=== PATIENT | male | born 1970 | race Caucasian/White ===

== ENCOUNTER → 2016-05-20 | Outpatient (CLI) | payer OTHER ==
[~2016-05-20] MED LIST: ABL/5 PO; ALPR1TAB3 PO; ALPR2TAB6 PO; BSP15 PO; BUSP30TA2 PO; CHOL100010 PO; CITA40TA12 PO; CLX20 PO; GABA800T PO; HYDR-5688 PO; HYDR25TA4 PO; IBUP600T44 PO; KFL500 PO; LOSA100T65 PO; LPR100 PO; LSX20 PO; NRN/600 PO; NRN800 PO; NRT75 PO; POTA1CAP2 PO; POTA20TA13 PO; PRLSR20 PO; PRVHFAIN INH; VLT500 PO
[2016-05-20 12:48] LABS: ALB/GLOB RATIO 0.7 (0.9-2); ALKALINE PHOSPHATASE 72 U/L (45-117); ALT/SGPT 31 U/L (12-78); AST/SGOT 17 U/L (15-37); BLOOD UREA NITROGEN 12 mg/dl (7-18); BUN/CREATININE RATIO 11.1 (10-20); CALCIUM 8.8 mg/dl (8.5-10.1); CARBON DIOXIDE 37 mmol/L (21-32); CHLORIDE 101 mmol/L (98-107); GLUCOSE 97 mg/dl (70-99); POTASSIUM 4.2 mmol/L (3.5-5.1); SODIUM 141 mmol/L (136-145)
[2016-05-20 13:42] LABS: ESTIMATED AVERAGE GLUCOSE 126 mg/dl; HA1C FLAG Normal (Normal)
== END | disposition home or self-care (01) ==
LOC: C.LABPVFM 07:48
PROVIDERS: ATTEND Nurse Practitioner
DX: I10 Essential (primary) hypertension (principal); R73.01 Impaired fasting glucose

== ENCOUNTER 2016-07-24 03:12 | Inpatient (IN) | payer OTHER ==
[~2016-07-24] VITALS: Ht 188 cm; Wt 177.1 kg
[2016-07-24] VITALS (27 sets, daily range): BP systolic 88–121; BP diastolic 43–78; PULSE 75–101; TEMP 37–38.1; O2SAT 93–100; Ht 188 cm; Wt 177.1 kg
[~2016-07-24 03:12] MED LIST changes: -ABL/5 PO; -ALPR2TAB6 PO; -BUSP30TA2 PO; -CITA40TA12 PO; -HYDR25TA4 PO; -KFL500 PO; -NRN/600 PO; -POTA1CAP2 PO; -POTA20TA13 PO; -PRVHFAIN INH; +SUCCINYLCHOLINE CHLORIDE 20 MG/ML 10 ML VIAL IV ONE; -VLT500 PO
[2016-07-24] MEDS ORDERED: SODIUM CHLORIDE 0.9% 1000ML 2,000 ML IV STA (03:29)
--- NOTE | 2016-07-24 03:40 | EMERGENCY ROOM VISIT NOTE ---
History Report prepared by Mere: Armida Monroy Under the Supervision of: Dr. Jamarcus Delatorre M.D. First contact with patient: 03:23 Chief Complaint: SKIN PROBLEM Stated Complaint: SKIN PROBLEM/RASH History of Present Illness The patient is a 46 year old male who presents to the Emergency Room with complaints of a rash starting last week. Initially started on left forearm as small pustule that broke open and is now with surrounding erythema and scabbing. Admits chronic leg swelling and erythema of legs. Denies diabetes nor previous issues with infections nor other immunocompromising reason. Admits feeling fatigued with dizziness, especially with standing over last few days. Over last day or so increasing shortness of breath with ambulation and diffuse generalized weakness, even just lifting his arm. Admits mild headache though no neck stiffness, photophobia, phonophobia, nor neuro deficits. The patient states that he is dizzy and that it gets worse when he stands up. He reports that he has been short of breath and has had weakness in his arms and legs. Has taken no medications for this. Nothing makes rash better, it has been worsening with time. Denies recent drug/alcohol use. Source of History: patient Onset: last week Position: other (global) Quality: other (rash) Associated Symptoms: + headache, No urinary symptoms Review of Systems See HPI for pertinent positives & negatives. A total of 10 systems reviewed and were otherwise negative. Past Medical & Surgical Medical Problems: (1) Depressive Disorder Nec (2) Diab Fay Wo Compl, Type Ii Or Unspec Type, Not Uncntrld (3) Hypertension Nos Family History Cancer Heart disease Social History Smoking Status: Never Smoker Marital Status: Current/Historical Medications Scheduled Alprazolam (Alprazolam), 2 MG PO TID Aripiprazole (Abilify), 5 MG PO HS Buspirone Hcl (Buspirone Hcl), 30 MG PO TID Citalopram Hydrobromide (Celexa), 40 MG PO QAM Furosemide (Furosemide), 20 MG PO DAILY Gabapentin (Neurontin), 600 MG PO QID Hydrochlorothiazide (Hctz), 25 MG PO DAILY Losartan Potassium (Cozaar), 100 MG PO DAILY Metoprolol Tartrate (Metoprolol Tartrate), 100 MG PO BID Nortriptyline HCl (Nortriptyline HCl), 75 MG PO HS Omeprazole (Prilosec), 20 MG PO DAILY Potassium Chloride (Potassium Chloride Er), 10 MEQ PO DAILY Allergies Coded Allergies: Morphine (Verified Adverse Reaction, Unknown, gi upset, 07/24/16) Physical Exam Vital Signs Date Time Temp Pulse Resp B/P (MAP) Pulse Ox O2 Delivery O2 Flow Rate FiO2 07/24/16 04:42 84 34 100 Nasal Cannula 2.0 07/24/16 04:12 85 99 Nasal Cannula 2.0 07/24/16 03:57 85 07/24/16 03:48 124/74 07/24/16 03:46 85 26 124/74 100 Nasal Cannula 2.0 07/24/16 03:17 38.5 93 18 104/67 91 Room Air Physical Exam GENERAL: Patient is severely ill and somnolent appearing. HEENT: No acute trauma, normocephalic atraumatic, mucous membranes moist, no nasal congestion, no scleral icterus. NECK: Large obese neck. No stridor, no adenopathy, no meningismus, trachea is midline. LUNGS: Mild dyspneic with shallow respirations though maintaining airway. [place]. Distant lung sounds without obvious wheezing/rhonchi/rales HEART: Tachycardic and regular rhythm. No murmurs, rubs, gallops appreciated though distant heart sounds due to body habitus ABDOMEN: Soft, nontender, bowel sounds positive, no masses appreciated, no peritonitis. BACK: No midline tenderness, no CVA tenderness EXTREMITIES: Lymphedema of bilateral lower legs. There is diffuse lower leg cellulitis, grossly infected toes bilaterally as well. NEUROLOGIC: Somnolent, no acute motor or sensory deficits, no focal weakness, cranial nerves grossly intact. SKIN: Diffuse erythematous bullae, nodules and pustules over most of body. Large cellulitis region of left forearm with blistering/crusting. Bilateral cellulitis of legs extending from toes to knees. Medical Decision & Procedures ER Provider Diagnostic Interpretation: X ray results are stated below per my interpretation and the radiologist's interpretation. Chest X Ray: Diffuse haziness all lung mckinney. Poor penetration due to body habitus. Enlarged heart. Laboratory Results 07/24/16 03:35 Red Blood Count 5.41, Mean Corpuscular Volume 90.2, Mean Corpuscular Hemoglobin 27.5, Mean Corpuscular Hemoglobin Concent 30.5, Mean Platelet Volume 10.8, Neutrophils (%) (Auto) 76.9, Lymphocytes (%) (Auto) 12.8, Monocytes (%) (Auto) 9.0, Eosinophils (%) (Auto) 0.3, Basophils (%) (Auto) 0.3, Neutrophils # (Auto) 11.76, Lymphocytes # (Auto) 1.96, Monocytes # (Auto) 1.38, Eosinophils # (Auto) 0.05, Basophils # (Auto) 0.04 07/24/16 03:35 Test 07/24/16 03:35 07/24/16 03:46 07/24/16 04:30 White Blood Count 15.29 K/uL (4.8-10.8) Red Blood Count 5.41 M/uL (4.7-6.1) Hemoglobin 14.9 g/dL (14.0-18.0) Hematocrit 48.8 % (42-52) Mean Corpuscular Volume 90.2 fL (80-100) Mean Corpuscular Hemoglobin 27.5 pg (25-34) Mean Corpuscular Hemoglobin Concent 30.5 g/dl (32-36) Platelet Count 235 K/uL (130-400) Mean Platelet Volume 10.8 fL (7.4-10.4) Neutrophils (%) (Auto) 76.9 % Lymphocytes (%) (Auto) 12.8 % Monocytes (%) (Auto) 9.0 % Eosinophils (%) (Auto) 0.3 % Basophils (%) (Auto) 0.3 % Neutrophils # (Auto) 11.76 K/uL (1.4-6.5) Lymphocytes # (Auto) 1.96 K/uL (1.2-3.4) Monocytes # (Auto) 1.38 K/uL (0.11-0.59) Eosinophils # (Auto) 0.05 K/uL (0-0.5) Basophils # (Auto) 0.04 K/uL (0-0.2) RDW Standard Deviation 52.4 fL (36.4-46.3) RDW Coefficient of Variation 15.9 % (11.5-14.5) Immature Granulocyte % (Auto) 0.7 % Immature Granulocyte # (Auto) 0.10 K/uL (0.00-0.02) Erythrocyte Sedimentation Rate 85 mm/hr (0-14) Prothrombin Time 12.7 SECONDS (9.0-12.0) Prothromb Time International Ratio 1.2 (0.9-1.1) Anion Gap 7.0 mmol/L (3-11) Est Creatinine Clear Calc Drug Dose 82.0 ml/min Estimated GFR () 47.9 Estimated GFR (Non- 41.4 BUN/Creatinine Ratio 13.8 (10-20) Calcium Level 8.4 mg/dl (8.5-10.1) Magnesium Level 3.0 mg/dl (1.8-2.4) Total Bilirubin 0.8 mg/dl (0.2-1) Direct Bilirubin 0.2 mg/dl (0-0.2) Aspartate Amino Transf (AST/SGOT) 12 U/L (15-37) Alanine Aminotransferase (ALT/SGPT) 17 U/L (12-78) Alkaline Phosphatase 79 U/L (45-117) Total Creatine Kinase 86 U/L (39-308) Creatine Kinase MB < 0.5 ng/ml (0.5-3.6) Creatine Kinase MB Ratio (0-3.0) Troponin I < 0.015 ng/ml (0-0.045) C-Reactive Protein 16.60 mg/dl (0-0.29) Total Protein 8.5 gm/dl (6.4-8.2) Albumin 3.1 gm/dl (3.4-5.0) Procalcitonin 0.21 ng/ml (0-0.5) Bedside Lactic Acid Venous 1.59 mmol/L (0.90-1.70) Venous Blood pH 7.33 (7.36-7.41) Venous Blood Partial Pressure CO2 61 mmHg (38.0-50.0) Venous Blood Partial Pressure O2 41 mmHg Venous Blood HCO3 32 mmol/L Venous Blood Oxygen Saturation 74.5 % Venous Blood Base Excess 3.9 mmol/L Laboratory results as reviewed by me. Medications Administered Medications (Trade) Dose Ordered Sig/Mariel Route Start Time Stop Time Status Last Admin Dose Admin Sodium Chloride 2,000 ml @ 999 mls/hr Q2H1M STAT IV 07/24/16 03:29 07/24/16 05:29 DC 07/24/16 03:29 999 MLS/HR Piperacillin Sod/ Tazobactam Sod (Zosyn Iv) 4.5 gm NOW STAT IV 07/24/16 03:41 07/24/16 03:42 DC 07/24/16 04:36 4.5 GM Vancomycin HCl 2800 mg/Sodium Chloride 556 ml @ 200 mls/hr ONE STAT IV 07/24/16 04:10 07/24/16 06:56 DC 07/24/16 04:47 200 MLS/HR ECG Indication: SOB/dyspnea Rate (beats per minute): 85 Rhythm: normal sinus Findings: no acute ischemic change, no ectopy ED Course 0328: The patient was evaluated in room A10. A complete history and physical exam was performed. 0329: Ordered Sodium Chloride 2,000 ml @ 999 mls/hr IV. 0330: I ordered 2 large bore IV's. I told the nursing staff to start IV fluids and antibiotics. 0340: The patient became hypoxic and is now on 4L of nasal cannula. 0341: Ordered Zosyn Iv 4.5 gm IV. 0405: I discussed with the pharmacist, and will treat the patient with Vancomycin. 0410: Ordered Vancomycin HCl 2,800 mg/Sodium Chloride 556 ml @ 200 mls/hr IV. 0443: The patient is mildly stable. 0522: The patient is off of Oxygen. His level is in the low 90's. He is breathing comfortably. He awakens and answers questions though still severely ill. Given his multiple issues, we will send to ICU emergently for further treatment. Medical Decision Differential: Viral, Pharyngitis, Cellulitis, Pneumonia, Influenza, Meningitis, Sepsis, Bacteremia, UTI/Pyelonephritis, Endocrine, Toxicologic, amongst other pathologies entertained. Medication Reconciliation: I attest that I have personally reviewed the patient 's current medication list. The patient was initially hypotensive. He will be monitored by the hospitalist. 46 yr old severely ill male arrives for evaluation of diffuse rash over body. Exam consistent with bilateral leg cellulitis, left forearm cellulitis and diffuse septic bulea over much of body. Suspect he has sepsis secondary to primary leg cellulitis. Consistent with impending severe sepsis thus the two IVs, fluid resus, broad spectrum abx ordered on arrival. No murmur noted though heart sounds distant given large body habitus, obviously endocarditis in this case of high concern. CXR with difficult interpretation due to body habitus though could suspect underlying infection. Initial hypoxic and placed on O2 though with rest and fact that he is hypercapnic we removed O2 and sats staying in mid-low 90s. WBC elevation, diffuse cellulitis, mild AMS, CRP/ESR elevations and his exam he is clearly septic. Renal insufficiency though unclear if this is chronic for him or not. Had mild worsening mental status while in ED though still awakens and answers questions/follows commands. I concur with fact he is severely ill, despite his labs not being as severe as his exam. Many repeat exams and patient maintaining airway while in ED. Hospitalist down to evaluate patient and we both agree with ICU monitoring as his high risk of rapid decompensation. Consults Time Called: 034 Consulting Physician: Dr. Mercedes- Internal Medicine Returned Call: [phone] Discussed the patient's case. The patient will be evaluated for further treatment and disposition. Impression Primary Impression: Sepsis Additional Impression: Cellulitis Critical Care I have personally spent greater than 45 minutes of critical care time in the direct management of this patient. This was a life/limb threatening event. This includes time spent evaluating patient, direct bedside care, chart review, placing orders, interpretation of diagnostic studies, discussion with consultants, patient, and family members, as well as other required patient management activities. This 45 minutes is in excess of all separately billable procedures. Scribe Attestation The scribe's documentation has been prepared under my direction and personally reviewed by me in its entirety. I confirm that the note above accurately reflects all work, treatment, procedures, and medical decision making performed by me. Departure Information Dispostion Being Evaluated By Hospitalist Referrals Nelly Leonard C.R.N.P (PCP) Patient Instructions My [facility] Problem Qualifiers
[2016-07-24] MEDS ORDERED: PIPERACILLIN/TAZOBACTAM 4.5 GM/100ML D5W IV STA (03:41)
[2016-07-24 03:53] LABS: BASO % 0.3 %; BASO ABS # 0.04 K/uL (0-0.2); COMPLETE YES; EOS % 0.3 %; HEMATOCRIT 48.8 % (42-52); IG% 0.7 %; LYMPH % 12.8 %; LYMPH ABS # 1.96 K/uL (1.2-3.4); MEAN CELL VOLUME 90.2 fL (80-100); MEAN CORPUSCULAR HEMOGLOBIN 27.5 pg (25-34); MEAN CORPUSCULAR HGB CONC 30.5 g/dl (32-36); MEAN PLATELET VOLUME 10.8 fL (7.4-10.4); NEUT % 76.9 %; PLATELET COUNT 235 K/uL (130-400); RED BLOOD COUNT 5.41 M/uL (4.7-6.1); WHITE BLOOD COUNT 15.29 K/uL (4.8-10.8)
[2016-07-24 04:03] LABS: INR 1.2 (0.9-1.1); PROTHROMBIN TIME (PATIENT) 12.7 SECONDS (9.0-12.0)
[2016-07-24] MEDS ORDERED: VANCOMYCIN INJ 2,800 MG in SODIUM CHLORIDE 0.9% 500ML 500 ML IV STA (04:10)
[2016-07-24 04:12] LABS: ALT/SGPT 17 U/L (12-78); AST/SGOT 12 U/L (15-37); BLOOD UREA NITROGEN 26 mg/dl (7-18); BUN/CREATININE RATIO 13.8 (10-20); CALCIUM 8.4 mg/dl (8.5-10.1); CARBON DIOXIDE 31 mmol/L (21-32); CHLORIDE 97 mmol/L (98-107); GLUCOSE 102 mg/dl (70-99); SODIUM 135 mmol/L (136-145)
[2016-07-24 04:15] LABS: ALKALINE PHOSPHATASE 79 U/L (45-117)
[2016-07-24] MEDS ORDERED: BUSP30TA2 PO (04:34)
[2016-07-24] MEDS ORDERED: ABL/5 PO (04:35)
[2016-07-24] MEDS ORDERED: CITA40TA12 PO (04:35)
[2016-07-24] MEDS ORDERED: NRN/600 PO (04:36)
[2016-07-24] MEDS ORDERED: POTA1CAP2 PO (04:36)
[2016-07-24] MEDS ORDERED: HYDR25TA4 PO (04:36)
[2016-07-24] MEDS ORDERED: POTA20TA13 PO (04:36)
[2016-07-24] MEDS ORDERED: ALPR2TAB6 PO (04:37)
[2016-07-24 04:38] LABS: VEN BLD GAS O2 SATURATION 74.5 %; VEN BLOOD GAS BASE EXCESS 3.9 mmol/L; VENOUS BLOOD GAS PCO2 61 mmHg (38.0-50.0); VENOUS BLOOD GAS PO2 41 mmHg
[2016-07-24] MEDS ORDERED: ACETAMINOPHEN 325 MG TAB PO PRN (04:45)
[2016-07-24] MEDS ORDERED: NITROGLYCERIN 0.4 MG SL PER TAB CHARGE SL PRN (04:45)
[2016-07-24] MEDS ORDERED: VANCOMYCIN INJ 1,000 MG in SODIUM CHLORIDE 0.9% 250ML 250 ML IV STA (04:46)
[2016-07-24] MEDS ORDERED: LEVALBUTEROL 1.25MG/0.5ML NEB INH PRN (05:00)
[2016-07-24] MEDS ORDERED: PIPERACILL/TAZOBAC CONSULT ACTIVE PRN (05:00)
[2016-07-24] MEDS ORDERED: IPRATROPIUM BROMIDE NEB SOLN 0.02% 2.5 ML VIAL INH PRN (05:00)
[2016-07-24] MEDS ORDERED: VANCOMYCIN CONSULT ACTIVE PRN (05:00)
--- NOTE | 2016-07-24 06:00 | History and Physical ---
History & Physical Date & Time of Service: Jul 24, 2016 at 05:43 Chief Complaint: Skin Problem/Rash Primary Care Physician: Nelly Leonard C.R.N.P History of Present Illness Source: patient, spouse The patient is a 46-year-old male who presents to emergency room with 2 weeks of worsening bilateral lower extremity rash, shortness of breath and fatigue. He reports to the emergency department today because he was not able to stand up without being dizzy and was not able to walk. He has not had any recent travels or sick exposures. He reports that if he waited long enough he thought his symptoms might improve, which is why he did not come in earlier. Past Medical/Surgical History Medical Problems: (1) Depressive Disorder Nec Status: Chronic (2) Diab Fay Wo Compl, Type Ii Or Unspec Type, Not Uncntrld Status: Chronic (3) Hypertension Nos Status: Chronic Family History Cancer Heart disease Social History Smoking Status: Never Smoker Smokeless Tobacco Use: No Alcohol Use: none Drug Use: none Marital Status: Immunizations History of Influenza Vaccine: No History of Tetanus Vaccine?: Unknown History of Pneumococcal: No History of Hepatitis B Vaccine: Unknown Multi-Drug Resistant Organisms History of MDRO: No Allergies Coded Allergies: Morphine (Verified Adverse Reaction, Unknown, gi upset, 07/24/16) Home Medications Scheduled Alprazolam (Alprazolam), 2 MG PO TID Aripiprazole (Abilify), 5 MG PO HS Buspirone Hcl (Buspirone Hcl), 30 MG PO TID Citalopram Hydrobromide (Celexa), 40 MG PO QAM Furosemide (Furosemide), 20 MG PO DAILY Gabapentin (Neurontin), 600 MG PO QID Hydrochlorothiazide (Hctz), 25 MG PO DAILY Losartan Potassium (Cozaar), 100 MG PO DAILY Metoprolol Tartrate (Metoprolol Tartrate), 100 MG PO BID Nortriptyline HCl (Nortriptyline HCl), 75 MG PO HS Omeprazole (Prilosec), 20 MG PO DAILY Potassium Chloride (Potassium Chloride Er), 10 MEQ PO DAILY Review of Systems The patient is very lethargic, but is slowly able to answer questions. He denies chest pain, palpitations, cough, sore throat, fevers, chills, sweats, nausea, vomiting, abdominal pain, pelvic pain, blood in urine or stool, dysuria , urinary frequency or urgency, memory loss, abnormal bruising or bleeding, focal weakness, night sweats. The review of systems is otherwise negative other than for that already noted above, and at least 10 systems have been reviewed. Physical Exam Vital Signs Date Time Temp Pulse Resp B/P (MAP) Pulse Ox O2 Delivery O2 Flow Rate FiO2 07/24/16 05:25 38.4 07/24/16 05:15 83 30 135/60 100 Nasal Cannula 2.0 07/24/16 05:01 144/72 07/24/16 04:42 84 34 100 Nasal Cannula 2.0 07/24/16 04:12 85 99 Nasal Cannula 2.0 07/24/16 03:57 85 07/24/16 03:48 124/74 07/24/16 03:46 85 26 124/74 100 Nasal Cannula 2.0 07/24/16 03:17 38.5 93 18 104/67 91 Room Air The patient is lethargic, slow to respond, normocephalic and atraumatic, lying in bed and in moderate acute distress. HEENT--PERRL, EOMI, mucous membranes and oropharynx dry. Neck--supple, no JVD or bruits, thyroid normal, trachea midline, no adenopathy. Heart--normal S1 and S2, SM, no rubs or gallops. Lungs--diminished throughout, moderate respiratory distress, moderate accessory muscle use. Abdomen--normal bowel sounds and soft, morbidly obese Extremities/ Dermatologic--bilateral lower extremities with moderately severe erythema with scattered darkened areas, 3+ pitting edema bilaterally. Similar scattered areas on upper body as well. Neurologic--cranial nerves II through XII grossly intact. Moves all extremities equally well. Psychiatric--lethargic Diagnostics Laboratory Results Results Past 24 Hours Test 07/24/16 03:35 07/24/16 03:46 07/24/16 04:30 07/24/16 04:50 Range/Units White Blood Count 15.29 4.8-10.8 K/uL Red Blood Count 5.41 4.7-6.1 M/uL Hemoglobin 14.9 14.0-18.0 g/dL Hematocrit 48.8 42-52 % Mean Corpuscular Volume 90.2 80-100 fL Mean Corpuscular Hemoglobin 27.5 25-34 pg Mean Corpuscular Hemoglobin Concent 30.5 32-36 g/dl Platelet Count 235 130-400 K/uL Mean Platelet Volume 10.8 7.4-10.4 fL Neutrophils (%) (Auto) 76.9 % Lymphocytes (%) (Auto) 12.8 % Monocytes (%) (Auto) 9.0 % Eosinophils (%) (Auto) 0.3 % Basophils (%) (Auto) 0.3 % Neutrophils # (Auto) 11.76 1.4-6.5 K/uL Lymphocytes # (Auto) 1.96 1.2-3.4 K/uL Monocytes # (Auto) 1.38 0.11-0.59 K/uL Eosinophils # (Auto) 0.05 0-0.5 K/uL Basophils # (Auto) 0.04 0-0.2 K/uL RDW Standard Deviation 52.4 36.4-46.3 fL RDW Coefficient of Variation 15.9 11.5-14.5 % Immature Granulocyte % (Auto) 0.7 % Immature Granulocyte # (Auto) 0.10 0.00-0.02 K/uL Erythrocyte Sedimentation Rate 85 0-14 mm/hr Prothrombin Time 12.7 9.0-12.0 SECONDS Prothromb Time International Ratio 1.2 0.9-1.1 Sodium Level 135 136-145 mmol/L Potassium Level 4.0 3.5-5.1 mmol/L Chloride Level 97 98-107 mmol/L Carbon Dioxide Level 31 21-32 mmol/L Anion Gap 7.0 3-11 mmol/L Blood Urea Nitrogen 26 7-18 mg/dl Creatinine 1.90 0.60-1.40 mg/dl Est Creatinine Clear Calc Drug Dose 82.0 ml/min Estimated GFR () 47.9 Estimated GFR (Non- 41.4 BUN/Creatinine Ratio 13.8 10-20 Random Glucose 102 70-99 mg/dl Calcium Level 8.4 8.5-10.1 mg/dl Magnesium Level 3.0 1.8-2.4 mg/dl Total Bilirubin 0.8 0.2-1 mg/dl Direct Bilirubin 0.2 0-0.2 mg/dl Aspartate Amino Transf (AST/SGOT) 12 15-37 U/L Alanine Aminotransferase (ALT/SGPT) 17 12-78 U/L Alkaline Phosphatase 79 45-117 U/L Total Creatine Kinase 86 39-308 U/L Creatine Kinase MB < 0.5 0.5-3.6 ng/ml Creatine Kinase MB Ratio 0-3.0 Troponin I < 0.015 0-0.045 ng/ml C-Reactive Protein 16.60 0-0.29 mg/dl Total Protein 8.5 6.4-8.2 gm/dl Albumin 3.1 3.4-5.0 gm/dl Procalcitonin 0.21 0-0.5 ng/ml Bedside Lactic Acid Venous 1.59 0.90-1.70 mmol/L Venous Blood pH 7.33 7.36-7.41 Venous Blood Partial Pressure CO2 61 38.0-50.0 mmHg Venous Blood Partial Pressure O2 41 mmHg Venous Blood HCO3 32 mmol/L Venous Blood Oxygen Saturation 74.5 % Venous Blood Base Excess 3.9 mmol/L Microbiology Results 07/24/16 Blood Culture, Received Pending 07/24/16 Blood Culture, Received Pending Diagnostic Radiology Chest x-ray with bilateral fluffy infiltrates. Impression Assessment and Plan Sepsis with lung involvement and severe bilateral lower extremity cellulitis-- patient was admitted to the ICU on vancomycin IV, Zosyn IV and Levaquin IV. Follow blood cultures. We'll order CT of the head to assess for possible embolic process, and order an echocardiogram to assess for possible SBE. The picture of lung and skin involvement could be that of an embolic process. Place on normal saline at 100 mils per hour. Hypertension--hold HCTZ, furosemide and metoprolol tartrate 100 mg by mouth twice a day as patient has not taken his medications at all today and his systolic blood pressure is in the 110s, with a concern of possible sepsis. Will have available Lopressor 5 mg IV every 4 hours when necessary systolic blood pressure rhythm 140 or heart rate greater than 110. Depression--until patient is taking nothing by mouth we'll hold the alprazolam, Abilify, buspirone, Celexa, gabapentin, and nortriptyline. GERD--hold omeprazole 20 mg by mouth daily, and place on ranitidine 50 mg IV every 8 hours. Morbid obesity--suspect element of obesity hypoventilation syndrome, and will likely need CPAP at bedtime. Level of Care Critical Care Advanced Directives Existing Advance Directive: No Existing Living Will: No Existing Power of [place]: No Resuscitation Status FULL RESUSCITATION VTE Prophylaxis VTE Risk Assessment Done? Y/N: Yes Risk Level: High Given or contraindicated: Unfractionated heparin SQ
[2016-07-24] MEDS ORDERED: ACETAMINOPHEN IV 100 ML IV PRN (06:15)
[2016-07-24] MEDS ORDERED: METOPROLOL TARTRATE 1 MG/ML VIAL IV PRN (06:15)
[2016-07-24] MEDS: LEVOFLOXACIN / D5W 500 MG in PREMIXED IN D5W 100 ML IV SCH (06:21)
[2016-07-24] MEDS: SODIUM CHLORIDE 0.9% 1000ML 1,000 ML IV SCH ×3 (06:25→20:12)
--- NOTE | 2016-07-24 07:04 | DIAGNOSTIC IMAGING REPORT ---
HEAD CT NONCONTRAST CT DOSE: 614.27 mGy.cm HISTORY: altered mental state TECHNIQUE: Multiaxial CT images of the head were performed without the use of intravenous contrast. Automated exposure control was utilized for this study. Comparison: None. Findings: The paranasal sinuses and mastoid air cells are clear. The calvarium and skull base are intact. The ventricles and sulci are within normal limits. There is no mass, hematoma, midline shift, or acute infarct. Impression: No acute intracranial abnormality. Electronically signed by: Higinio Hodges M.D. 07/24/2016 7:03 AM Dictated Date/Time: 07/24/2016 7:01 AM
[2016-07-24] MEDS: LEVALBUTEROL 1.25MG/0.5ML NEB INH SCH ×2 (07:23→15:08)
[2016-07-24] MEDS: IPRATROPIUM BROMIDE NEB SOLN 0.02% 2.5 ML VIAL INH SCH ×2 (07:23→15:08)
[2016-07-24] MEDS: RANITIDINE IV 50 MG in DEXTROSE 5% 100ML 100 ML IV SCH ×2 (07:30→15:11)
--- NOTE | 2016-07-24 08:19 | Progress Note ---
Subjective Date of Service: Jul 24, 2016. Subjective very unclear story with this pt, is a diabetic and has open skin wounds on legs , plus recent trimming of toe nails and has background look of chronic venous stasis from his morbid obesity, has also many pets at home has a diffuse rash or focal erythematous inflammatory papules, across torso and extremities sparing palms and soles, one area of coaslecence at left elbow and more diffuse erythema to legs with open wounds to consider cellulitis in that location he has tachypnea without focal pulmonary infiltrates and presented with hypotension concerning clinically for sepsis Problem List Medical Problems: (1) Cellulitis Status: Acute (2) Sepsis Status: Acute Review of Systems Constitutional: + fever, + chills, + weakness, + fatigue Respiratory: + shortness of breath, + dyspnea on exertion, + dyspnea at rest, No cough, No sputum Cardiac: No chest pain, No edema Abdomen: No pain, No nausea, No vomiting, No diarrhea Musculoskeletal: + joint pain, + muscle pain Male : No dysuria, No urinary frequency Neurologic: No memory loss, No paralysis, No weakness Skin: + rash, + new/changing skin lesions Objective Vital Signs Date Time Temp Pulse Resp B/P (MAP) Pulse Ox O2 Delivery O2 Flow Rate FiO2 07/24/16 07:24 86 20 96 Nasal Cannula 6.0 07/24/16 06:00 85 20 121/72 (88) 94 Nasal Cannula 6.0 07/24/16 05:53 37.1 89 20 93/60 94 Nasal Cannula 6.0 07/24/16 05:25 38.4 07/24/16 05:15 83 30 135/60 100 Nasal Cannula 2.0 07/24/16 05:01 144/72 07/24/16 04:42 84 34 100 Nasal Cannula 2.0 07/24/16 04:12 85 99 Nasal Cannula 2.0 07/24/16 03:57 85 07/24/16 03:48 124/74 07/24/16 03:46 85 26 124/74 100 Nasal Cannula 2.0 07/24/16 03:17 38.5 93 18 104/67 91 Room Air Physical Exam General Appearance: + moderate distress, + obese Eyes: PERRL, EOMI ENT: hearing grossly normal, pharynx normal Neck: supple, no JVD Respiratory/Chest: chest non-tender, + decreased breath sounds, + rhonchi Cardiovascular: regular rate, rhythm, no murmur Abdomen: normal bowel sounds, non tender, soft Extremities: no pedal edema, no calf tenderness Neurologic/Psychiatric: alert, oriented x 3 Skin: + pertinent finding (see hpi for description) Laboratory Results Last 24 Hours Test 07/24/16 03:35 07/24/16 03:46 07/24/16 04:30 07/24/16 06:28 White Blood Count 15.29 K/uL Red Blood Count 5.41 M/uL Hemoglobin 14.9 g/dL Hematocrit 48.8 % Mean Corpuscular Volume 90.2 fL Mean Corpuscular Hemoglobin 27.5 pg Mean Corpuscular Hemoglobin Concent 30.5 g/dl Platelet Count 235 K/uL Mean Platelet Volume 10.8 fL Neutrophils (%) (Auto) 76.9 % Lymphocytes (%) (Auto) 12.8 % Monocytes (%) (Auto) 9.0 % Eosinophils (%) (Auto) 0.3 % Basophils (%) (Auto) 0.3 % Neutrophils # (Auto) 11.76 K/uL Lymphocytes # (Auto) 1.96 K/uL Monocytes # (Auto) 1.38 K/uL Eosinophils # (Auto) 0.05 K/uL Basophils # (Auto) 0.04 K/uL RDW Standard Deviation 52.4 fL RDW Coefficient of Variation 15.9 % Immature Granulocyte % (Auto) 0.7 % Immature Granulocyte # (Auto) 0.10 K/uL Erythrocyte Sedimentation Rate 85 mm/hr Prothrombin Time 12.7 SECONDS Prothromb Time International Ratio 1.2 Sodium Level 135 mmol/L Potassium Level 4.0 mmol/L Chloride Level 97 mmol/L Carbon Dioxide Level 31 mmol/L Anion Gap 7.0 mmol/L Blood Urea Nitrogen 26 mg/dl Creatinine 1.90 mg/dl Est Creatinine Clear Calc Drug Dose 82.0 ml/min Estimated GFR () 47.9 Estimated GFR (Non- 41.4 BUN/Creatinine Ratio 13.8 Random Glucose 102 mg/dl Calcium Level 8.4 mg/dl Magnesium Level 3.0 mg/dl Total Bilirubin 0.8 mg/dl Direct Bilirubin 0.2 mg/dl Aspartate Amino Transf (AST/SGOT) 12 U/L Alanine Aminotransferase (ALT/SGPT) 17 U/L Alkaline Phosphatase 79 U/L Total Creatine Kinase 86 U/L Creatine Kinase MB < 0.5 ng/ml Creatine Kinase MB Ratio Troponin I < 0.015 ng/ml C-Reactive Protein 16.60 mg/dl Total Protein 8.5 gm/dl Albumin 3.1 gm/dl Procalcitonin 0.21 ng/ml Bedside Lactic Acid Venous 1.59 mmol/L Venous Blood pH 7.33 Venous Blood Partial Pressure CO2 61 mmHg Venous Blood Partial Pressure O2 41 mmHg Venous Blood HCO3 32 mmol/L Venous Blood Oxygen Saturation 74.5 % Venous Blood Base Excess 3.9 mmol/L Bedside Glucose 93 mg/dl Test 07/24/16 07:26 07/24/16 07:32 Assessment and Plan 46 M with sepsis, systemic inflamatory dermatitis and diabetic leg infection, Sepsis/diabetic leg infection, vancomycin IV, Zosyn IV and Levaquin IV. pending blood cultures. concern that diffuse process could be viral, will consider varicella/hanta virus,will discuss with icu and send serologies Hypertension--hold HCTZ, furosemide and metoprolol available Lopressor 5 mg IV every 4 hours if bp allows to prevent reflex tachycardia Depression-- hold the alprazolam, Abilify, buspirone, Celexa, gabapentin, and nortriptyline. GERD-- ranitidine 50 mg IV every 8 hours. Morbid obesity--suspect element of obesity hypoventilation syndrome, and will likely need CPAP at bedtime
[2016-07-24] MEDS: ENOXAPARIN 40 MG/0.4 ML SYR SQ SCH (08:47)
[2016-07-24 08:57] LABS: ISTAT ALLEN TEST Pass; ISTAT ARTERIAL BLOOD GAS HCO3 30 meq/L (19-24); ISTAT ARTERIAL BLOOD GAS PCO2 57 mmHg (35-46); ISTAT ARTERIAL BLOOD GAS PO2 66 mmHg (80-95); ISTAT ARTERIAL BLOOD GAS pH 7.33 (7.35-7.45); ISTAT CARBON DIOXIDE 31 mEq/l (24-31); ISTAT DELIVERY SYSTEM Cannula; ISTAT SITE L Radial
--- NOTE | 2016-07-24 08:58 | DIAGNOSTIC IMAGING REPORT ---
CHEST ONE VIEW PORTABLE HISTORY: fever COMPARISON: Chest 11/07/2010. FINDINGS: Low lung volumes. The heart remains mildly enlarged. No pleural effusions. No pneumothorax. No focal lung consolidations to suggest pneumonia. Mild central pulmonary vascular congestion without overt edema. IMPRESSION: Mild cardiomegaly. Mild central pulmonary vascular congestion without overt edema. Electronically signed by: Higinio Hodges M.D. 07/24/2016 8:57 AM Dictated Date/Time: 07/24/2016 8:56 AM
[2016-07-24] MEDS ORDERED: LEVALBUTEROL/IPRATROPIUM NEB INH SCH (09:00)
--- NOTE | 2016-07-24 09:21 | Progress Note ---
Progress Note Date of Service Jul 24, 2016. Progress Note ID Consult Dictated #[id number] A/P: 1. Sepsis -Continue broad spectrum abx for now, follow cultures -No open skin wounds currently, if drainage, will need cultures -Discussed with ICU -will follow, thank you
[2016-07-24 09:34] LABS: PHOSPHORUS 2.7 mg/dl (2.5-4.9); THYROID STIMULATING HORMONE 1.27 uIu/ml (0.300-4.500)
[2016-07-24 09:37] LABS: URINE APPEARANCE TURBID (CLEAR); URINE BILIRUBIN NEG (NEG); URINE COLOR YELLOW; URINE NITRITE NEG (NEG); URINE SPECIFIC GRAVITY 1.024 (1.000-1.030); UROBILINOGEN NEG (NEG)
[2016-07-24] MEDS: PIPERACILL/TAZOBAC IV 4.5 GM in DEXTROSE 5% 100ML 100 ML IV SCH ×2 (09:48→17:39)
[2016-07-24 09:59] LABS: MANUAL MICROSCOPIC REQUIRED? NO; REVIEW REQ? YES
[2016-07-24] MEDS ORDERED: CONSULT PHARMACY STA (10:10)
[2016-07-24] MEDS ORDERED: ACYCLOVIR CONSULT ACTIVE PRN (10:45)
[2016-07-24] MEDS: ACYCLOVIR SOD INJ 800 MG in DEXTROSE 5% 250ML 250 ML IV SCH ×2 (11:17→17:40)
[2016-07-24] MEDS ORDERED: ALBUMIN HUMAN 25% 12.5 GM/50 ML VIAL IV ONE (11:30)
[2016-07-24] MEDS ORDERED: SODIUM CHLORIDE 0.9% 500ML 500 ML IV ONE ×2 (12:00→13:00)
--- NOTE | 2016-07-24 12:19 | INFECT. DISEASE CONSULTATION ---
DATE OF CONSULTATION: 07/24/2016 REQUESTING PHYSICIAN: Dr. Mercedes. HISTORY OF PRESENT ILLNESS: This is a 46-year-old gentleman who was admitted to the Emergency Room with 2 weeks worth of lower extremity swelling, rash, shortness of breath and cough productive of purulent sputum. His girlfriend is present during my examination and provides most of the history as the patient himself is confused. He is in mild distress and is having shaking chills during my examination but denies any fevers currently. He was febrile at 38.5 on admission and does admit to having subjective fevers and chills over the past few weeks at home. He denies any travel or insect bites. He has multiple skin lesions covering both his upper and lower extremities and has significant edema and pain in his lower extremities which he states is chronic. He denies any cough or shortness of breath to me; however, upon speaking to the ICU team, he is having productive cough and a sample has been sent for culture. He denies any chest pain. He denies any nausea, vomiting, diarrhea or abdominal pain. His appetite is poor. He denies any travel. He denies any sick contacts. They do have goats, dogs and cats at the house. All remaining review of systems are unremarkable. PAST MEDICAL HISTORY: He has a history of depression, type 2 diabetes and hypertension. FAMILY HISTORY: Noncontributory. SOCIAL HISTORY: Negative for tobacco use, alcohol use or drug use. ALLERGIES: HE HAS ALLERGIES TO MORPHINE. CURRENT MEDICATIONS: Include Zosyn, Atrovent, Xopenex, Lovenox, acetaminophen, ranitidine, Lopressor, Levaquin, Tylenol. He also received a one-time dose of vancomycin overnight. PHYSICAL EXAMINATION: VITAL SIGNS: T-max is 38.5, current temperature is 37.2, pulse 85, respiratory rate is in the 20s, blood pressure is 104/71, oxygen saturation is 94-96% on 6 liters nasal cannula. GENERAL: He is awake, alert and oriented. He is somewhat confused and lethargic. He does appear uncomfortable. He is not diaphoretic. HEENT: Mucous membranes are dry. Extraocular muscles are intact. HEART: Regular. I do not auscultate a murmur. LUNGS: Decreased bilaterally. ABDOMEN: Soft and nondistended. EXTREMITIES: There is significant lower extremity edema bilaterally with warmth and erythema. He states this is tender to palpation. He has multiple pimple-like lesions scattered all over his upper extremities. There is an area of significant erythema and induration over the left elbow, but he does admit to picking at this lesion. These are not vesicular in nature. There is no crusting over the lesions. There is no weeping or purulent drainage from any of the lesions noted today. LABORATORY STUDIES: CBC reveals a white blood cell count of 15.2, hemoglobin 14.9, platelets are 235. Sed rate is elevated at 85. Chemistry panel reveals a sodium of 135, potassium 4.0, chloride 97, bicarb 31, BUN 26, creatinine 1.9, glucose is 102. LFTs are within normal limits. Procalcitonin is 0.2. Thyroid studies are pending. No urinalysis was obtained. Blood culture and sputum culture are pending. Chest x-ray shows bilateral infiltrates; however, has not been read by radiology. At this time, a CAT scan of the head was unremarkable. ASSESSMENT AND PLAN: 1. Sepsis. 2. Leukocytosis. 3. Fever. At this time, he will remain on broad spectrum antibiotics, pending the results of blood and sputum cultures. His skin lesions do not have a typical appearance for disseminated zoster or varicella; however, I am concerned that there could be secondary bloodstream infection related to these areas as he has been picking at them at home and he will remain on broad spectrum antibiotics, pending the results of blood cultures. We will follow along with you. Thank you for this consultation.
[2016-07-24] MEDS ORDERED: PERFLUTREN LIPID MICROSPHERE (DEFINITY) IV ONE (13:22)
--- NOTE | 2016-07-24 14:11 | CRITICAL CARE CONSULTATION ---
DATE OF CONSULTATION: 07/24/2016 CHIEF COMPLAINT: Rash and dizziness. HISTORY OF PRESENT ILLNESS: Mr. Louie is a 46-year-old morbidly obese male, with a history of hypertension and depression who presented to the Emergency Department last night secondary to worsening rash and dizziness. He also reported shortness of breath and generalized weakness. He is not a very good historian, although his girlfriend helps fill in the blanks. He tells me 2 or 3 weeks ago, he started to have a cough and bring up some sputum, basically feeling pretty lousy. The sputum was yellow and thick and he felt mildly short of breath. He denies fevers or chills. His appetite has been poor. About a week ago, he started to have a rash on his left arm which was "pinpoint, not raised and he calls them "spots." The spots got larger, became raised and confluent on his left arm. He then noticed them on his chest and now he has them scattered over his body, primarily the arms and trunk. The rash is not pruritic and he denies any tick bites or insect bites, but does live in the [place] with several dogs and cats as well as goats. He also has a gecko. He has been "dizzy" for several weeks where he is "wobbly when he walks and hanging on to furniture because sometimes he feels like he is going to pass out." He denies any falls or focal weakness. His girlfriend has been trying to get him to seek medical attention for at least a week and he thought that his symptoms would resolve on their own. He reports lower extremity edema, but not worse than usual. He also says he has been sitting around the house for the better part of 3 weeks and is not eating very well. He denies sore throat, nausea, vomiting, abdominal pain, melena, hematochezia or headache. He may have had some visual changes, but he has a hard time describing it. He denies dysuria, frequency or urgency. In the Emergency Department, the patient was given 2 liters of normal saline, Zosyn and vancomycin. He also had a CT scan of his head which did not show any acute process. Chest x-ray was read as mild central pulmonary vascular congestion without overt edema. He was then transferred to the intensive care unit. Presently, he is a bit lethargic and his history is not always consistent. He and his girlfriend also report that they had a problem with his medications 2 or 3 weeks ago because one of the dogs knocked his pill container off the table or flipped it over and he thought maybe his symptoms were due to a mixup in medicines after that. PAST MEDICAL HISTORY: Depression, hypertension, morbid obesity and lymphedema. PAST SURGICAL HISTORY: Hammertoe surgery, tonsillectomy and dental extractions. ALLERGIES: MORPHINE WHICH CAUSES NAUSEA. OUTPATIENT MEDICATIONS: Xanax 2 mg t.i.d., Abilify 5 mg at bedtime, buspirone 30 mg t.i.d., Celexa 40 mg daily, Lasix 20 mg daily, gabapentin 600 mg q.i.d., hydrochlorothiazide 25 mg daily, losartan 100 mg daily, metoprolol 100 mg b.i.d., nortriptyline 75 mg at bedtime, omeprazole 20 mg daily and potassium chloride 10 mEq daily. SOCIAL HISTORY: He is and has a girlfriend named Charisma. He quit smoking in 2009 and does not drink any alcohol. He is not employed. FAMILY HISTORY: Mother with heart disease and pacemaker. Father with lung cancer. Both are . REVIEW OF SYSTEMS: He reports cutting his toe when he attempted to cut his toenails several weeks ago. Increased erythema of the lower extremities. He denies diarrhea or hemoptysis. He denies myalgias or arthralgias. Additional review of systems is negative or noncontributory or as per the history of present illness and 12-point system. PHYSICAL EXAMINATION: VITAL SIGNS: Maximum temperature 38.5, heart rate 80s-90s, respiratory rate 20-28, blood pressure 93-121/60s-70s and oxygen saturation 94% on six liters nasal cannula. HEENT: Pupils are equally round and reactive to light. There is no scleral icterus. There is no nystagmus. Oral mucosa is dry. Posterior pharynx is clear. NECK: Large. No adenopathy, no bruits. LUNGS: Very diminished breath sounds throughout. No rales, rhonchi or wheezes, but I cannot hear much of anything. HEART: Very distant, regular rate and rhythm. ABDOMEN: Firm, nontender, it is impossible to feel any organomegaly, hypoactive bowel sounds. EXTREMITIES: There is erythema and warmth on the bilateral lower extremities from below the knee distally. There is at least 2+ edema. There is an area of old dried blood and some nail bed changes over the left great toe. Hands and feet are cool. No splinter hemorrhages. SKIN: Shows erythematous papules with some patchy areas; they are approximately 1 cm in diameter and there is a confluence of them over the left arm inferior to the elbow. There is crusting there with a scab. NEUROLOGIC: He is able to answer questions, but speaks slowly. He is oriented to person and place, but not month. There is no nystagmus. Tongue is midline. No facial droop. No pronator drift. Strength is 4+/5 in the upper and lower extremities. Sensation is grossly intact. LABORATORIES: White blood cell count 15.29, hemoglobin 14.9, hematocrit 48.8 and platelets 235. There is a left shift, pH 7.33, pCO2 57, pO2 66, HCO3 of 30. PT 12.7, INR 1.2. Sodium 135, potassium 4, chloride 97, CO2 31, BUN 26, creatinine 1.9, blood sugar 102, calcium 8.4, magnesium 3. LFTs are within normal limits. Troponin is less than 0.015. C-reactive protein 16.6, total protein 8.5, albumin 3.1. Procalcitonin 0.21. Lactic acid 1.59. Phosphorus is pending. Hemoglobin A1c is pending. TSH is pending. Urinalysis is pending. Blood cultures are pending. Urine culture and sputum culture pending. EKG is in progress. IMPRESSION: 1. Sepsis, undetermined definitive etiology. He has potential sources in the lungs as well as his skin. 2. Bilateral lower extremity cellulitis. 3. Probable pneumonia. 4. Acute hypoxemic respiratory failure. 5. Probable obesity hypoventilation syndrome. 6. Acute kidney injury. 7. Rash. - ? viral etiology. 8. Depression. 9. Morbid obesity. 10. History of hypertension. 11. Metabolic encephalopathy. PLAN: NEUROLOGIC: Avoid sedatives. Acetaminophen for pain. PULMONARY: Continue broad-spectrum antibiotics. I have placed him on BiPAP 18/7 for [address] expansion. Consider CT scan of the chest. Percussion therapy has been ordered, encourage sputum expectoration. Bronchodilators. He may require intubation and I discussed that with him, as well as his girlfriend and his girlfriend's mother. He is not especially hypoxemic, but he is taking very shallow tidal volumes off bipap. CARDIOVASCULAR: Check EKG and echocardiogram and attempt to rule out endocarditis. Follow troponins. PICC line. Hold Lopressor. Hold Lasix and hydrochlorothiazide. RENAL: Continue hydration and follow electrolytes. INFECTIOUS DISEASE: Continue Levaquin, Zosyn and vancomycin. Infectious disease service has been consulted. Consider acyclovir. GASTROINTESTINAL: Maintain n.p.o. with the exception of a few ice chips and medications. Add ranitidine for GI prophylaxis. HEMATOLOGIC: Bilateral lower extremity Dopplers and subcutaneous Lovenox for now. Critical care time; 60 minutes. MTDD
--- NOTE | 2016-07-24 15:21 | DIAGNOSTIC IMAGING REPORT ---
BILATERAL LOWER EXTREMITY VENOUS DOPPLER HISTORY: Lower extremity edema COMPARISON STUDY: None. FINDINGS: There is normal compressibility, flow, and augmentation within the bilateral lower extremity deep venous systems. IMPRESSION: No DVT within the right or left lower extremity. Electronically signed by: Higinio Hodges M.D. 07/24/2016 3:20 PM Dictated Date/Time: 07/24/2016 3:19 PM
[2016-07-24] MEDS ORDERED: RAPID SEQUENCE INDUCTION BAG ONE (15:26)
[2016-07-24] MEDS ORDERED: PROPOFOL IV EMULSION 10 MG/ML 100 ML VIAL IV ONE (15:27)
[2016-07-24] MEDS ORDERED: PHENYLEPHRINE HCL INJ 10 MG/ML VIAL ONE (15:28)
[2016-07-24 15:50] LABS: IPAP 18; ISTAT ALLEN TEST Pass; ISTAT ARTERIAL BLOOD GAS HCO3 33 meq/L (19-24); ISTAT ARTERIAL BLOOD GAS PCO2 72 mmHg (35-46); ISTAT ARTERIAL BLOOD GAS PO2 250 mmHg (80-95); ISTAT ARTERIAL BLOOD GAS pH 7.27 (7.35-7.45); ISTAT CARBON DIOXIDE 35 mEq/l (24-31); ISTAT DELIVERY SYSTEM BIPAP; ISTAT FIO2 50 %; ISTAT RATE 12; ISTAT SITE L Radial
--- NOTE | 2016-07-24 15:51 | ECHOCARDIOGRAM REPORT ---
*NOTICE TO RECEIVING DEMOCRAT AGENCY This information is strictly Confidential and protected under [place] law. [place] law prohibits you from making any further disclosure of this information unless further disclosure is expressly permitted by the written consent of the person to whom it pertains or is authorized by law. A general authorization for the release of medical or other information is not sufficient for this purpose. Hospital accepts no responsibility if the information is made available to any other person, INCLUDING THE PATIENT. Interpretation Summary * Name: AZEB BOYCE Study Date: 07/24/2016 12:59 PM BP: 93/60 mmHg * Patient Location: .MSICU\S\E104\S\1 HR: 89 * : 1970 (M/d/yyyy) Gender: Male Height: 72 in * Age: 46 yrs Ethnicity: CA Weight: 401 lb * Ordering Physician: Reji Mercedes * Performed By: Zhanna Christianson * * Reason For Study: SEPSIS, ASSESS FOR SBE * BSA: 2.9 m2 * -- Conclusions -- * The study was done sitting up. * Only the definity pictures have any diagnostic value. * The left ventricle is normal in size. * Ejection Fraction = >70 %. * The left ventricle is hyperdynamic. * There is normal left ventricular wall thickness. * The left ventricular wall motion is normal. * There is no aortic stenosis. * No significant mitral regurgitation * Normal E/A ratio and normal E:e' ratio * The RV is not seen but TAPSE is normal. * None of the valves are seen well. Procedure Details * The study was technically limited. * The study was technically difficult. * Limited views were obtained. * There were technical limitations due to patient's body habitus and inability to cooperate. * A contrast injection of Definity was performed to improve assessment of LV function. * Contrast was injected into an intravenous site in the left arm. * One vial of Definity ultrasound contrast was diluted in normal saline to a total volume of 10 ml. A total of '3' ml of solution was administered during imaging. * Lot # [id number] of Definity utilized for procedure. * Expiration date 07/24. * The attending nurse who injected the contrast agent was LUIS ALBERTO BENSON. Left Ventricle * The left ventricle is normal in size. * There is normal left ventricular wall thickness. * Ejection Fraction = >70 %. * The left ventricle is hyperdynamic. * The left ventricular wall motion is normal. MMode 2D Measurements and Calculations IVSd 1.5 cm IVSs 2.2 cm LVIDd 5.5 cm LVIDs 3.2 cm LVPWd 1.1 cm LVPWs 1.8 cm IVS/LVPW 1.4 FS 42.9 % EDV(Teich) 149.5 ml ESV(Teich) 39.8 ml EF(Teich) 73.4 % EDV(cubed) 169.5 ml ESV(cubed) 31.6 ml EF(cubed) 81.3 % % IVS thick 46.4 % % LVPW thick 60.1 % LV mass(C)d 309.5 grams LV mass(C)dI 108.1 grams/m\S\2 LV mass(C)s 277.3 grams LV mass(C)sI 96.8 grams/m\S\2 CO(Teich) 10.4 l/min CI(Teich) 3.6 l/min/m\S\2 SV(Teich) 109.7 ml SI(Teich) 38.3 ml/m\S\2 CO(cubed) 13.1 l/min CI(cubed) 4.6 l/min/m\S\2 SV(cubed) 137.8 ml SI(cubed) 48.1 ml/m\S\2 LVOT diam 2.5 cm LVOT area 4.9 cm\S\2 LVAd ap4 29.9 cm\S\2 LVLd ap4 8.1 cm EDV(MOD-sp4) 88.9 ml LVAs ap4 10.6 cm\S\2 LVLs ap4 5.8 cm ESV(MOD-sp4) 16.3 ml EF(MOD-sp4) 81.7 % LVAd ap2 21.5 cm\S\2 LVLd ap2 7.3 cm EDV(MOD-sp2) 51.4 ml LVAs ap2 8.7 cm\S\2 LVLs ap2 5.6 cm ESV(MOD-sp2) 10.8 ml EF(MOD-sp2) 79.0 % CO(MOD-sp4) 6.9 l/min CI(MOD-sp4) 2.4 l/min/m\S\2 SV(MOD-sp4) 72.6 ml SI(MOD-sp4) 25.4 ml/m\S\2 CO(MOD-sp2) 3.9 l/min CI(MOD-sp2) 1.3 l/min/m\S\2 SV(MOD-sp2) 40.6 ml SI(MOD-sp2) 14.2 ml/m\S\2 Doppler Measurements and Calculations MV E max manuela 103.8 cm/sec MV A max manuela 87.3 cm/sec MV E/A 1.2 MV dec time 0.24 sec Ao V2 max 146.6 cm/sec Ao max PG 8.6 mmHg Ao max PG (full) 2.9 mmHg EWA(V,A) 4.0 cm\S\2 EWA(V,D) 4.0 cm\S\2 LV V1 max PG 5.7 mmHg LV V1 max 119.8 cm/sec PA V2 max 91.2 cm/sec PA max PG 3.3 mmHg
--- NOTE | 2016-07-24 16:00 | Progress Note ---
Progress Note Date of Service Jul 24, 2016. Progress Note Consultation for intubation requested by Cap And Stud Machine Operator for mechanical ventilation. Patient has acute hypoxic and hypercarbic respiratory failure most likely due to severe sepsis complicated by Pickwickian syndrome. The patient has a stiff neck, full teeth, and is morbidly obese. He is somnolent on BiPAP, 100% FIO2. HR 92, BP 113/67, SPO2 100, RR 24 Patient was positioned with a ramp. preoxygenated. Induced with 200mg of Propofol and 200mg of succinylcholine. 2 hand mask possible with oral airway. Grade 3 view obtained by brief laryngoscopy attempt with Mil3. Good view of cords facilitated with glide scope. 8.0ETT placed to 25cm at teeth. Continuous ETCO2 and breath sounds confirmed bilaterally. Post procedure vital signs 122/64 HR 93, SPO2, RR 19. Ventilator management and sedation per motor vehicle escort driver. Thank you for the consult.
[2016-07-24] MEDS ORDERED: FENTANYL 1250MCG/250ML NSS 250 ML IV PRN (16:15)
[2016-07-24] MEDS ORDERED: FENTANYL CITRATE 1250MCG/250ML NSS ONE (16:18)
[2016-07-24] MEDS ORDERED: FENTANYL CITRATE INJ 50 MCG/1 ML 2 ML VIAL IV SCH (16:30)
--- NOTE | 2016-07-24 16:31 | DIAGNOSTIC IMAGING REPORT ---
CHEST ONE VIEW PORTABLE HISTORY: TUBE PLACEMENT COMPARISON: Chest 07/24/2016. FINDINGS: Endotracheal tube terminates 2.1 cm from the arina. The tip of the right PICC terminates in the expected location of the SVC. There are low lung volumes. The heart remains mildly enlarged. Mild central pulmonary gastric congestion without overt edema. Bibasilar densities have progressed. This may represent atelectasis or pleural effusions. Suboptimal evaluation of the chest due to the portable technique in the patient's large body habitus. IMPRESSION: 1. The endotracheal tube terminates 2.1 cm from the arina. 2. A right PICC terminates in the expected location of the distal SVC. 3. Pulmonary vascular congestion and mild cardiomegaly. 4. Progressive bibasilar densities. This could represent atelectasis or layering small pleural effusions. Electronically signed by: Higinio Hodges M.D. 07/24/2016 4:29 PM Dictated Date/Time: 07/24/2016 4:27 PM
[2016-07-24 16:42] LABS: BUN/CREATININE RATIO 11.3 (10-20); CALCIUM 7.5 mg/dl (8.5-10.1); CREATININE 1.3 mg/dl (0.60-1.40); POTASSIUM 4.3 mmol/L (3.5-5.1)
[2016-07-24] MEDS ORDERED: PANTOprazole INJ 40 MG in SYRINGE 0 ML IV ONE (17:15)
[2016-07-24 17:42] LABS: ISTAT ALLEN TEST Pass; ISTAT ARTERIAL BLOOD GAS HCO3 33 meq/L (19-24); ISTAT ARTERIAL BLOOD GAS PCO2 58 mmHg (35-46); ISTAT ARTERIAL BLOOD GAS PO2 154 mmHg (80-95); ISTAT ARTERIAL BLOOD GAS pH 7.37 (7.35-7.45); ISTAT CARBON DIOXIDE 35 mEq/l (24-31); ISTAT DELIVERY SYSTEM Ventilator; ISTAT FIO2 100 %; ISTAT PEEP 10; ISTAT RATE 20; ISTAT SITE L Radial; VE 8.9; Vt 500
--- NOTE | 2016-07-24 18:17 | Progress Note ---
Progress Note Date of Service Jul 24, 2016. Progress Note Surveying Technician: Patient became hypercapneic and poorly responsive on bipap 18/7 50% FIO2. Was intubated by anesthesia - short neck, poor neck extension, morbidly obese. Significant other, Charisma, updated by me via phone.
[2016-07-24] MEDS: PROPOFOL IV EMULSION 10 MG/ML 100 ML VIAL IV PRN ×2 (19:15→23:35)
[2016-07-24] MEDS: CHLORHEXIDINE GLUCONATE 0.12% 15 ML UDP MT SCH (19:28)
[2016-07-24] MEDS: IPRATROPIUM BROMIDE HFA INHALER INH SCH ×2 (19:46→23:32)
[2016-07-24] MEDS: LEValbuterol HFA 15GM INHALER INH SCH ×2 (19:46→23:32)
[2016-07-24] MEDS: VANCOMYCIN INJ 2,000 MG in SODIUM CHLORIDE 0.9% 500ML 500 ML IV SCH (20:31)
--- NOTE | 2016-07-24 22:22 | Pharmacy Progress Note ---
Pharmacy Abx Initial Consult Date of Service Jul 24, 2016. Pharmacy Dosing Scope Pharmacy is consulted to manage IV Vancomycin/Zosyn/Acyclovir dosing therapy, order appropriate labs and adjust drug dose/frequency. Subjective The patient is a 46 year old male admitted on Jul 24, 2016 at 04:49. Objective Height (Feet): 6 Height (Inches): 2.00 Weight (Kilograms): 172.200 Vital Signs (Past 12Hrs) Vital Signs Past 12 Hours Date Time Temp Pulse Resp B/P (MAP) Pulse Ox O2 Delivery O2 Flow Rate FiO2 07/24/16 20:32 89 20 107/52 (70) 100 07/24/16 20:02 92 20 109/56 (73) 99 07/24/16 20:00 100 07/24/16 20:00 100 Mechanical Ventilator 80 07/24/16 20:00 37.3 92 20 99 07/24/16 19:56 100 07/24/16 19:32 94 20 120/61 (80) 100 07/24/16 19:02 95 20 108/60 (76) 100 07/24/16 19:00 96 20 100 07/24/16 18:00 37.2 95 20 108/60 (76) 100 Mechanical Ventilator 100 07/24/16 17:50 100 07/24/16 16:05 100 07/24/16 16:00 37.2 95 18 114/78 (90) 93 Mechanical Ventilator 100 07/24/16 16:00 97 Mechanical Ventilator 100 07/24/16 16:00 100 07/24/16 15:10 92 30 100 BiPAP/CPAP 50 07/24/16 15:08 92 100 50 07/24/16 14:00 37.2 91 30 115/55 (75) 100 BiPAP 50 07/24/16 12:00 38.1 101 48 109/55 (73) 95 Nasal Cannula 8.0 07/24/16 12:00 95 Oxymask 8.0 07/24/16 11:35 37.2 96 28 104/43 (63) 96 Oxymask 8.0 07/24/16 10:00 37.2 93 28 88/50 (63) 97 BiPAP 50 Lab Results (24Hrs) Laboratory Tests (24 Hours) Test 07/24/16 03:35 07/24/16 20:28 C-Reactive Protein 16.60 mg/dl (0-0.29) H Erythrocyte Sedimentation Rate 85 mm/hr (0-14) H White Blood Count 15.29 K/uL (4.8-10.8) H Red Blood Count 5.41 M/uL (4.7-6.1) Hemoglobin 14.9 g/dL (14.0-18.0) Hematocrit 48.8 % (42-52) Mean Corpuscular Volume 90.2 fL (80-100) Mean Corpuscular Hemoglobin 27.5 pg (25-34) Mean Corpuscular Hemoglobin Concent 30.5 g/dl (32-36) L Platelet Count 235 K/uL (130-400) Mean Platelet Volume 10.8 fL (7.4-10.4) H Neutrophils (%) (Auto) 76.9 % Lymphocytes (%) (Auto) 12.8 % Monocytes (%) (Auto) 9.0 % Eosinophils (%) (Auto) 0.3 % Basophils (%) (Auto) 0.3 % Neutrophils # (Auto) 11.76 K/uL (1.4-6.5) H Lymphocytes # (Auto) 1.96 K/uL (1.2-3.4) Monocytes # (Auto) 1.38 K/uL (0.11-0.59) H Eosinophils # (Auto) 0.05 K/uL (0-0.5) Basophils # (Auto) 0.04 K/uL (0-0.2) Procalcitonin 0.21 ng/ml (0-0.5) Lactic Acid Level 0.8 mmol/L (0.4-2.0) Total Creatine Kinase 55 U/L (39-308) Micro Results Date/Time Source Procedure Growth Status 07/24/16 04:00 Blood Blood Culture Pending Received 07/24/16 03:35 Blood Blood Culture Pending Received 07/24/16 06:00 Nasal MRSA DNA Surveillance Screen - Final Specimen Negative for MRSA by DNA Probe Complete 07/24/16 07:45 Sputum Expectorated Sputum Gram Stain Pending Received 07/24/16 07:45 Sputum Expectorated Sputum Sputum Culture Pending Received 07/24/16 09:00 Urine,Catheterized Urine Culture Pending Received 07/24/16 06:00 Drainage-Deep Leg Lower Left Gram Stain - Final Resulted 07/24/16 06:00 Drainage-Deep Leg Lower Left Wound Culture Pending Resulted 07/24/16 06:00 Drainage-Deep Elbow Gram Stain - Final Resulted 07/24/16 06:00 Drainage-Deep Elbow Wound Culture Pending Resulted Assessment & Plan Assessment 46 year old male presenting with possible sepsis with lung involvement & severe bilateral LE cellulitis, showing significant improvement in renal function throughout the day. Plan Vancomycin IV * Loading dose: Vancomycin 2800mg IV x 1 dose (15.4mg/kg) * Maintenance dose: Vancomycin 2gm IV q12h (11.6mg/kg) * Goal trough level: 15-20mcg/mL * Trough level ordered for: 07/26/16 0900 dose * Random level this afternoon indicates that patient can begin scheduled maintenance dosing * A less than traditional dose & extended dosing interval have been selected due to likelihood of drug accumulation in obese patient (BMI 48.7kg/m2) Piperacillin/tazobactam * 4.5gm bolus administered over 30 minutes, then 4.5gm IV extended infusion every 8 hours for CrCl greater than 20 mL * Aggressive dosing selected due to critically ill status/BMI 35 or more. Acyclovir * Dosing based on IBW of 82kg * Acyclovir 800mg IV u4q--kf dosage adjustment needed for CrCl above 50ml/min Pharmacy will continue to follow and will adjust dose/frequency as necessary. Thank you.
[2016-07-25] VITALS (28 sets, daily range): BP systolic 91–147; BP diastolic 48–75; PULSE 69–88; TEMP 36.6–37; O2SAT 95–100
[2016-07-25] MEDS: PIPERACILL/TAZOBAC IV 4.5 GM in DEXTROSE 5% 100ML 100 ML IV SCH ×3 (01:30→17:47)
[2016-07-25] MEDS: ACYCLOVIR SOD INJ 800 MG in DEXTROSE 5% 250ML 250 ML IV SCH ×3 (01:32→17:47)
[2016-07-25] MEDS: LEValbuterol HFA 15GM INHALER INH SCH ×6 (02:11→23:21)
[2016-07-25] MEDS: IPRATROPIUM BROMIDE HFA INHALER INH SCH ×6 (02:11→23:21)
[2016-07-25] MEDS: PROPOFOL IV EMULSION 10 MG/ML 100 ML VIAL IV PRN ×4 (04:32→22:56)
[2016-07-25] MEDS: LEVOFLOXACIN / D5W 500 MG in PREMIXED IN D5W 100 ML IV SCH (05:18)
[2016-07-25 05:43] LABS: BASO % 0.3 %; BASO ABS # 0.03 K/uL (0-0.2); COMPLETE YES; EOS % 1.9 %; HEMATOCRIT 40.1 % (42-52); IG% 0.5 %; LYMPH % 8.9 %; LYMPH ABS # 0.98 K/uL (1.2-3.4); MEAN CELL VOLUME 91.3 fL (80-100); MEAN CORPUSCULAR HEMOGLOBIN 26.9 pg (25-34); MEAN CORPUSCULAR HGB CONC 29.4 g/dl (32-36); MEAN PLATELET VOLUME 10.2 fL (7.4-10.4); MONO % 8.6 %; NEUT % 79.8 %; PLATELET COUNT 197 K/uL (130-400); RED BLOOD COUNT 4.39 M/uL (4.7-6.1); WHITE BLOOD COUNT 10.99 K/uL (4.8-10.8)
[2016-07-25 05:48] LABS: INR 1.2 (0.9-1.1); PARTIAL THROMBOPLASTIN RATIO 1.2; PROTHROMBIN TIME (PATIENT) 13.4 SECONDS (9.0-12.0)
[2016-07-25 06:16] LABS: BUN/CREATININE RATIO 10.4 (10-20); CALCIUM 7.4 mg/dl (8.5-10.1); CREATININE 0.94 mg/dl (0.60-1.40); MAGNESIUM 2.8 mg/dl (1.8-2.4); PHOSPHORUS 1.9 mg/dl (2.5-4.9); POTASSIUM 3.6 mmol/L (3.5-5.1)
--- NOTE | 2016-07-25 07:04 | DIAGNOSTIC IMAGING REPORT ---
CHEST ONE VIEW PORTABLE CLINICAL HISTORY: sepsis dyspnea COMPARISON STUDY: 07/24/2016 FINDINGS: Endotracheal tube 2 cm above the arina. Findings of slightly progressive congestive failure. Potential superimposed infiltrate left base. IMPRESSION: Slightly progressive components of congestive failure. Small parenchymal infiltrate left base. Endotracheal tube 2 cm above the arina. Electronically signed by: Luis Treviño M.D. 07/25/2016 7:03 AM Dictated Date/Time: 07/25/2016 7:01 AM
[2016-07-25 08:16] LABS: ESTIMATED AVERAGE GLUCOSE 131 mg/dl; HA1C FLAG Normal (Normal)
[2016-07-25] MEDS ORDERED: POTASSIUM PHOS 3 MMOL/1 ML INFUSION IV STA (08:28)
[2016-07-25] MEDS ORDERED: OPTIRAY 320 IV PRN (08:30)
[2016-07-25] MEDS ORDERED: POTASSIUM PHOSPHATE INJ 21 MMOL in SODIUM CHLORIDE 0.9% 500ML 500 ML IV SCH (09:00)
[2016-07-25] MEDS: VANCOMYCIN INJ 2,000 MG in SODIUM CHLORIDE 0.9% 500ML 500 ML IV SCH (09:02)
[2016-07-25] MEDS: CHLORHEXIDINE GLUCONATE 0.12% 15 ML UDP MT SCH ×2 (09:03→20:30)
[2016-07-25] MEDS: ENOXAPARIN 40 MG/0.4 ML SYR SQ SCH (09:03)
--- NOTE | 2016-07-25 09:42 | DIAGNOSTIC IMAGING REPORT ---
CHEST CTA for PULMONARY ARTERIES CT DOSE: 632.92 mGy.cm HISTORY: Chest pain dyspnea TECHNIQUE: Multiaxial CT images of the chest were performed following the intravenous administration of contrast to evaluate the pulmonary arteries. Maximal intensity projection images were also obtained. COMPARISON STUDY: None. FINDINGS: Thoracic aorta is normal in course and caliber. Visibility of the pulmonary tear vasculature is compromised due to patient body habitus and somatic motion considerations. There is an endotracheal tube 3 cm above the arina. Findings of bibasilar right as well as left lower lobe atelectatic changes. There is a trace amount pleural fluid posterior costophrenic angles. Scattered atelectatic changes of the upper lungs bilaterally are present. Nasogastric tube within the stomach. Diffuse fatty infiltration of liver. IMPRESSION: 1. Study is negative for pulmonary embolus. 2. Compromised exam due to patient body habitus considerations. 3. Bilateral lower lobe atelectatic changes with scattered upper lobe atelectatic changes. 4. Moderate cardiomegaly Electronically signed by: Luis Treviño M.D. 07/25/2016 9:41 AM Dictated Date/Time: 07/25/2016 9:37 AM
--- NOTE | 2016-07-25 10:30 | Critical Care Progress Note ---
Critical Care Progress Note Date of Service Jul 25, 2016. ICU Day ICU Day Number: [address] Ibrahim Subjective Patient is currently intubated, unable to obtain a subjective history No events overnight Objective General: Obese, sedated and on mechanical ventilation Skin: blister like lesions on the back bilat UE, eschar noted on a large lesion on the left UE, bilat LE are erythematous with stasis dermatitis, ulcerations on posterior aspect of bilat LE, multiple tattoos noted CVS: S1/ S2 noted, RRR, no rubs/ murmurs noted, no cyanosis RESP: decreased to bilat bases, occasional coarse breath sound noted, difficult to hear well because of body habitus Neck: Large neck, inspection WNL ABD: BSx4, obese, soft to palpation, no overt organomegaly however difficult to palpate well because of obesity MSK: bilat LE are swollen and erythematous, +2 pitting edema bilat NVS:PERRL, patient does not respond to voice or pain Lymph: No lymphadenopathy palpable Current SOFA Score SOFA Score Response (Comments) Value Platelets (x10) > 150 0 Bilirubin (mg/dL) < 1.2 0 Duane Coma Score < 6 4 Level of Hypotension No Hypotension 0 Creatinine (mg/dL) < 1.2 0 Total 4 Assessment & Plan 1. Sepsis from an undetermined source; possibly cutaneous vs pulmonary; does have exposure to rodents 2. Acute hypoxemic hypercapnic respiratory failure 3. Bilat LE cellulitis- no LE DVT visualized 4. Obesity Hypoventilation Syndrome 5. Depression/ Anxiety- chronic use of Benzo from Psychiatrist 6. Morbid Obesity 7. Hypophosphatemia 8. MORIS- resolved NVS - Currently sedated on Fentanyl and Propofol - plan to d/c fentanyl to lessen sedation - PDMP reviewed and no concerns - scheduled benzos - will have ativan 1 mg tid to avoid withdrawal - patient is on multiple neuro agents which includes Abilify 5 mg hs, buspar 30 mg tid, celexa 40 mg, nortriptyline 75 mg CVS -echo was done yesterday * The left ventricle is normal in size, EF > 70%, LV hyperdynamic, normal LV thickness - no or significant MR- none of valves well seen - difficult study - plan is to do CTA chest to r/o PE and if WNL will consider SREGEY to evaluate valves - restart Lasix 20 mg daily as positive fluid balance - continue to hold losartan, HCTZ and Toprol RESP - Rate 20, TC 0.5 PEEP 13 FIO2 60 - CTA to r/o PE as above - continue xopenex and Ipratropium ID - consult ID - Currently on Zosyn, Levo and Acyclovir - rodent based diseases considered and are not limited to tularemia ( lesions however are not localized and no palpable lymphadenopathy) , leptospirosis ( no conjunctivitis or diarrhea), Hantavirus ( no thrombocytopenia or atypical lymphocytosis) - will r/o Hep C, lyme, influenza and HIV - Sputum cx- Staph - Blood cx pending GI - Once SERGEY complete will start trickle feeds - cont Pantoprazole 40 mg daily Dow body wt 181 lbs - continue to monitor I&O - NSS @ 100 FEN - Hypophos was repleted with 21mml K phos - continue to follow and replete prn ENDO - BSG ACHS - HBA1C pending DVT Prophylaxis Enoxaparin 30 bid Resident Physician Supervision Note: Dr. Esparza was resident physician during care of patient. I separately evaluated patient and did history and exam. I discussed the case with the resident and generally agree with the findings and plan. Plan limited SERGEY, wean sedation. CT chest. I have personally spent 40 minutes of critical care time in the direct management of this patient. This is a life/limb threatening event. This includes time spent evaluating patient, direct bedside care, chart review, placing orders, interpretation of diagnostic studies, discussion with consultants, patient, and family members, as well as other required patient management activities. This time is exclusive of all separately billable procedures, and teaching time and separate from and in addition to any other critical care service time. Documented By: Chuck Ibrahim DO [facility] II Score Date Score Was Generated: Jul 25, 2016 Consults & Procedures Consultants: ID- Dr Winter Procedures: Intubation 07/24/16 Data Medications: Current Inpatient Medications Medications (Trade) Dose Ordered Sig/Mariel Route Start Time Stop Time Status Last Admin Dose Admin Sodium Chloride 1,000 ml @ 100 mls/hr Q10H IV 07/24/16 06:00 08/23/16 05:59 07/24/16 17:40 100 MLS/HR Acetaminophen (Tylenol Tab) 650 mg Q4H PRN PO 07/24/16 04:45 08/23/16 04:44 Piperacillin Sod/ Tazobactam Sod 4.5 gm/Dextrose 120 ml @ 30 mls/hr Q8H IV 07/24/16 10:00 08/03/16 09:59 07/25/16 09:51 30 MLS/HR Levofloxacin 500 mg/Prmx 100 ml @ 100 mls/hr Q24H IV 07/24/16 06:00 08/03/16 05:59 07/25/16 05:18 100 MLS/HR Ipratropium [place] (Atrovent 0.02% 0.5MG/2.5ML Neb) 0.5 mg Q2H PRN INH 07/24/16 05:00 08/23/16 04:59 Levalbuterol (Xopenex 1.25MG/ 0.5ML Neb) 1.25 mg Q2H PRN INH 07/24/16 05:00 08/23/16 04:59 Vancomycin HCl (Consult) 1 ea UD PRN N/A 07/24/16 05:00 08/23/16 04:59 Piperacillin Sod/ Tazobactam Sod (Consult) 1 ea UD PRN N/A 07/24/16 05:00 08/23/16 04:59 Acetaminophen 100 ml @ 400 mls/hr Q8H PRN IV 07/24/16 06:15 08/23/16 06:14 07/24/16 08:46 400 MLS/HR Metoprolol Tartrate (Lopressor Iv) 5 mg Q4 PRN IV 07/24/16 06:15 08/23/16 06:14 Enoxaparin Sodium (Lovenox Inj) 40 mg QAM SQ 07/24/16 09:00 08/23/16 08:59 07/25/16 09:03 40 MG Acyclovir Sodium 800 mg/Dextrose 266 ml @ 250 mls/hr Q8@0200,1000,1800 IV 07/24/16 11:00 08/03/16 10:59 07/25/16 09:53 250 MLS/HR Acyclovir Sodium (Consult) 1 ea UD PRN N/A 07/24/16 10:45 08/23/16 10:44 Heparin Sodium (Porcine) (Heparin 10 Unit/ ml 5 ml Flush) 5 ml PRN PRN FLUSH 07/24/16 12:30 08/23/16 12:29 Chlorhexidine Gluconate (Peridex Oral Soln 15ML Udp) 15 ml BID MT 07/24/16 21:00 08/23/16 20:59 07/25/16 09:03 15 ML Propofol (Diprivan Iv Emulsion 100ml Vial) 1 dose UD PRN IV 07/24/16 16:15 07/27/16 16:14 07/25/16 09:53 1 DOSE Fentanyl Citrate 250 ml @ 0 mls/hr Q0M PRN IV 07/24/16 16:15 08/07/16 16:14 Ipratropium [place] (Atrovent Hfa Inhaler) 4 puffs Q4R INH 07/24/16 20:00 08/23/16 19:59 07/25/16 07:29 4 PUFFS Levalbuterol (Xopenex Hfa Inhaler) 4 puffs Q4R INH 07/24/16 20:00 08/23/16 19:59 07/25/16 07:29 4 PUFFS Pantoprazole Sodium 40 mg/ Syringe 10 ml @ 5 mls/min DAILY@11 IV 07/25/16 11:00 08/24/16 10:59 Vancomycin HCl 2000 mg/Sodium Chloride 540 ml @ 200 mls/hr Q12 IV 07/24/16 21:00 08/03/16 20:59 07/25/16 09:02 200 MLS/HR Ioversol (Optiray 320) 100 ml UD PRN IV 07/25/16 08:30 07/29/16 08:29 Potassium Phosphate 21 mmol/ Sodium Chloride 507 ml @ 169 mls/hr TODAY@0900 IV 07/25/16 09:00 07/25/16 11:59 07/25/16 09:52 169 MLS/HR Lorazepam (Ativan Inj) 1 mg TID IV 07/25/16 14:00 08/24/16 13:59 Vital Signs: Date Time Temp Pulse Resp B/P (MAP) Pulse Ox O2 Delivery O2 Flow Rate FiO2 07/25/16 06:02 69 20 95/53 (67) 100 07/25/16 06:00 60 07/25/16 06:00 69 20 100 07/25/16 05:32 72 20 92/52 (65) 98 07/25/16 05:02 72 20 91/53 (66) 98 07/25/16 05:00 73 20 98 07/25/16 05:00 60 07/25/16 04:24 100 07/25/16 04:24 100 Mechanical Ventilator 80 07/25/16 04:13 79 20 99/55 (70) 97 07/25/16 04:00 37.0 82 20 96 07/25/16 03:02 78 20 104/54 (71) 98 07/25/16 03:00 79 20 99 07/25/16 02:11 60 07/25/16 02:02 74 20 107/59 (75) 100 07/25/16 02:00 74 20 100 07/25/16 01:32 72 20 105/56 (72) 100 07/25/16 01:02 75 20 106/56 (73) 100 07/25/16 01:00 75 20 100 07/25/16 00:32 74 20 95/54 (68) 100 07/25/16 00:02 75 20 93/48 (63) 100 07/25/16 00:00 37.0 74 20 100 07/25/16 00:00 100 07/25/16 00:00 100 Mechanical Ventilator 80 07/24/16 23:32 80 07/24/16 23:32 75 20 90/51 (64) 100 07/24/16 23:02 81 20 97/51 (66) 100 07/24/16 23:00 93 20 100 07/24/16 22:02 87 20 107/51 (69) 100 07/24/16 22:00 83 20 100 07/24/16 21:32 82 20 99/50 (66) 100 07/24/16 21:02 86 20 94/50 (65) 100 07/24/16 21:00 87 20 100 07/24/16 20:32 89 20 107/52 (70) 100 07/24/16 20:02 92 20 109/56 (73) 99 07/24/16 20:00 37.0 07/24/16 20:00 100 07/24/16 20:00 100 Mechanical Ventilator 80 07/24/16 20:00 37.3 92 20 99 07/24/16 19:56 100 07/24/16 19:32 94 20 120/61 (80) 100 07/24/16 19:02 95 20 108/60 (76) 100 07/24/16 19:00 96 20 100 07/24/16 18:00 37.2 95 20 108/60 (76) 100 Mechanical Ventilator 100 07/24/16 17:50 100 07/24/16 16:05 100 07/24/16 16:00 37.2 95 18 114/78 (90) 93 Mechanical Ventilator 100 07/24/16 16:00 97 Mechanical Ventilator 100 07/24/16 16:00 100 07/24/16 15:10 92 30 100 BiPAP/CPAP 50 07/24/16 15:08 92 100 50 07/24/16 14:00 37.2 91 30 115/55 (75) 100 BiPAP 50 07/24/16 12:00 38.1 101 48 109/55 (73) 95 Nasal Cannula 8.0 07/24/16 12:00 95 Oxymask 8.0 07/24/16 11:35 37.2 96 28 104/43 (63) 96 Oxymask 8.0 Laboratory Results: Last 24 Hours Test 07/24/16 11:57 07/24/16 12:35 07/24/16 15:36 07/24/16 16:11 Bedside Glucose 142 mg/dl Lactic Acid Level 0.7 mmol/L Total Creatine Kinase 57 U/L Creatine Kinase MB < 0.5 ng/ml Creatine Kinase MB Ratio Troponin I < 0.015 ng/ml Blood Gas Sample Site L Radial Bedside Blood Gas pH (LAB) 7.27 Bedside Blood Gas pCO2 (LAB) 72 mmHg Bedside Blood Gas pO2 (LAB) 250 mmHg Bedside Blood Gas HCO3 (LAB) 33 meq/L Bedside Blood Gas Total CO2 35 mEq/l Bedside Blood Gas Base Excess (LAB) 6.0 meq/L Bedside Blood Gas O2 Saturation 100.0 % Steven Test Pass Oxygen Delivery Device BIPAP Bedside Oxygen Rate (breaths/min) 12 Bedside FiO2 50 % Blood Gas IPAP 18 Sodium Level 138 mmol/L Potassium Level 4.3 mmol/L Chloride Level 102 mmol/L Carbon Dioxide Level 32 mmol/L Anion Gap 4.0 mmol/L Blood Urea Nitrogen 15 mg/dl Creatinine 1.30 mg/dl Est Creatinine Clear Calc Drug Dose 118.7 ml/min Estimated GFR () 75.8 Estimated GFR (Non- 65.4 BUN/Creatinine Ratio 11.3 Random Glucose 127 mg/dl Calcium Level 7.5 mg/dl Random Vancomycin Level 10.5 mcg/ml Test 07/24/16 17:30 07/24/16 20:28 07/25/16 05:16 07/25/16 05:20 Blood Gas Sample Site L Radial Bedside Blood Gas pH (LAB) 7.37 Bedside Blood Gas pCO2 (LAB) 58 mmHg Bedside Blood Gas pO2 (LAB) 154 mmHg Bedside Blood Gas HCO3 (LAB) 33 meq/L Bedside Blood Gas Total CO2 35 mEq/l Bedside Blood Gas Base Excess (LAB) 8.0 meq/L Bedside Blood Gas O2 Saturation 99.0 % Steven Test Pass Oxygen Delivery Device Ventilator Bedside Oxygen Rate (breaths/min) 20 Blood Gas Minute Ventilation 8.9 Bedside FiO2 100 % Blood Gas Tidal Volume 500 Blood Gas PEEP 10 Lactic Acid Level 0.8 mmol/L 0.7 mmol/L Total Creatine Kinase 55 U/L Creatine Kinase MB < 0.5 ng/ml Creatine Kinase MB Ratio Troponin I < 0.015 ng/ml White Blood Count 10.99 K/uL Red Blood Count 4.39 M/uL Hemoglobin 11.8 g/dL Hematocrit 40.1 % Mean Corpuscular Volume 91.3 fL Mean Corpuscular Hemoglobin 26.9 pg Mean Corpuscular Hemoglobin Concent 29.4 g/dl Platelet Count 197 K/uL Mean Platelet Volume 10.2 fL Neutrophils (%) (Auto) 79.8 % Lymphocytes (%) (Auto) 8.9 % Monocytes (%) (Auto) 8.6 % Eosinophils (%) (Auto) 1.9 % Basophils (%) (Auto) 0.3 % Neutrophils # (Auto) 8.78 K/uL Lymphocytes # (Auto) 0.98 K/uL Monocytes # (Auto) 0.94 K/uL Eosinophils # (Auto) 0.21 K/uL Basophils # (Auto) 0.03 K/uL RDW Standard Deviation 53.5 fL RDW Coefficient of Variation 15.9 % Immature Granulocyte % (Auto) 0.5 % Immature Granulocyte # (Auto) 0.05 K/uL Prothrombin Time 13.4 SECONDS Prothromb Time International Ratio 1.2 Activated Partial Thromboplast Time 31.9 SECONDS Partial Thromboplastin Ratio 1.2 Sodium Level 139 mmol/L Potassium Level 3.6 mmol/L Chloride Level 103 mmol/L Carbon Dioxide Level 35 mmol/L Anion Gap 1.0 mmol/L Blood Urea Nitrogen 10 mg/dl Creatinine 0.94 mg/dl Est Creatinine Clear Calc Drug Dose 163.3 ml/min Estimated GFR () 112.2 Estimated GFR (Non- 96.8 BUN/Creatinine Ratio 10.4 Random Glucose 102 mg/dl Calcium Level 7.4 mg/dl Phosphorus Level 1.9 mg/dl Magnesium Level 2.8 mg/dl Total Bilirubin 0.5 mg/dl Direct Bilirubin 0.2 mg/dl Aspartate Amino Transf (AST/SGOT) 7 U/L Alanine Aminotransferase (ALT/SGPT) 12 U/L Alkaline Phosphatase 61 U/L Total Protein 6.4 gm/dl Albumin 2.2 gm/dl Procalcitonin 0.10 ng/ml Bedside Glucose 108 mg/dl Test 07/25/16 08:56
[2016-07-25] MEDS: PANTOprazole INJ 40 MG in SYRINGE 0 ML IV SCH (11:06)
--- NOTE | 2016-07-25 11:10 | Progress Note ---
Subjective Date of Service: Jul 25, 2016. Subjective Pt evaluation today including: conversation w/ patient, conversation w/ family , physical exam, chart review, lab review pt seen in follow up, now intubated, awake, asking for drink. family at bedside. multiple studies done, ct chest negative for PE, infiltrate, cxr with fluid overload. cultures of blood negative, culture of lower ext wound and left elbow wound with S. aureus, final pending. blood cultures negative to date. sputum culture pending. now with some conjucitivits of right eye. denies pain, denies fever. remaining negative but limited due to intubation. tmax 38.1. Remains on multiple abx and acyclovir pending vzv cultures. HIV, HCV pending as well. Problem List Medical Problems: (1) Cellulitis Status: Acute (2) Sepsis Status: Acute Objective Vital Signs Date Time Temp Pulse Resp B/P (MAP) Pulse Ox O2 Delivery O2 Flow Rate FiO2 07/25/16 07:55 60 07/25/16 06:02 69 20 95/53 (67) 100 07/25/16 06:00 60 07/25/16 06:00 69 20 100 07/25/16 05:32 72 20 92/52 (65) 98 07/25/16 05:02 72 20 91/53 (66) 98 07/25/16 05:00 73 20 98 07/25/16 05:00 60 07/25/16 04:24 100 07/25/16 04:24 100 Mechanical Ventilator 80 07/25/16 04:13 79 20 99/55 (70) 97 07/25/16 04:00 37.0 82 20 96 07/25/16 03:02 78 20 104/54 (71) 98 07/25/16 03:00 79 20 99 07/25/16 02:11 60 07/25/16 02:02 74 20 107/59 (75) 100 07/25/16 02:00 74 20 100 07/25/16 01:32 72 20 105/56 (72) 100 07/25/16 01:02 75 20 106/56 (73) 100 07/25/16 01:00 75 20 100 07/25/16 00:32 74 20 95/54 (68) 100 07/25/16 00:02 75 20 93/48 (63) 100 07/25/16 00:00 37.0 74 20 100 17 00:00 100 07/25/16 00:00 100 Mechanical Ventilator 80 07/24/16 23:32 80 07/24/16 23:32 75 20 90/51 (64) 100 1817 23:02 81 20 97/51 (66) 100 07/24/16 23:00 93 20 100 07/24/16 22:02 87 20 107/51 (69) 100 07/24/16 22:00 83 20 100 07/24/16 21:32 82 20 99/50 (66) 100 07/24/16 21:02 86 20 94/50 (65) 100 07/24/16 21:00 87 20 100 07/24/16 20:32 89 20 107/52 (70) 100 07/24/16 20:02 92 20 109/56 (73) 99 07/24/16 20:00 37.0 07/24/16 20:00 100 07/24/16 20:00 100 Mechanical Ventilator 80 07/24/16 20:00 37.3 92 20 99 07/24/16 19:56 100 07/24/16 19:32 94 20 120/61 (80) 100 07/24/16 19:02 95 20 108/60 (76) 100 07/24/16 19:00 96 20 100 07/24/16 18:00 37.2 95 20 108/60 (76) 100 Mechanical Ventilator 100 07/24/16 17:50 100 07/24/16 16:05 100 07/24/16 16:00 37.2 95 18 114/78 (90) 93 Mechanical Ventilator 100 07/24/16 16:00 97 Mechanical Ventilator 100 17 16:00 100 07/24/16 15:10 92 30 100 BiPAP/CPAP 50 07/24/16 15:08 92 100 50 07/24/16 14:00 37.2 91 30 115/55 (75) 100 BiPAP 50 07/24/16 12:00 38.1 101 48 109/55 (73) 95 Nasal Cannula 8.0 07/24/16 12:00 95 Oxymask 8.0 07/24/16 11:35 37.2 96 28 104/43 (63) 96 Oxymask 8.0 Physical Exam General Appearance: WD/WN, + mild distress, + pertinent finding (awake on vent) Neck: supple Respiratory/Chest: + decreased breath sounds Cardiovascular: regular rate, rhythm Abdomen: non tender, soft Extremities: + inflammation, + pedal edema, + swelling Neurologic/Psychiatric: alert Skin: + pertinent finding (multiple ue/le lesions noted. no vesicles noted) Laboratory Results Item Value Date Time Blood Culture - Preliminary Resulted 07/24/16 0335 Blood NO GROWTH TO DATE. Blood Culture - Preliminary Resulted 07/24/16 0400 Blood NO GROWTH TO DATE. Gram Stain - Final Resulted 07/24/16 0600 Drainage-Deep Elbow Gram Stain - Final Resulted 07/24/16 0600 Drainage-Deep Leg Lower Left Last 24 Hours Test 07/24/16 11:57 07/24/16 12:35 07/24/16 15:36 07/24/16 16:11 Bedside Glucose 142 mg/dl Lactic Acid Level 0.7 mmol/L Total Creatine Kinase 57 U/L Creatine Kinase MB < 0.5 ng/ml Creatine Kinase MB Ratio Troponin I < 0.015 ng/ml Blood Gas Sample Site L Radial Bedside Blood Gas pH (LAB) 7.27 Bedside Blood Gas pCO2 (LAB) 72 mmHg Bedside Blood Gas pO2 (LAB) 250 mmHg Bedside Blood Gas HCO3 (LAB) 33 meq/L Bedside Blood Gas Total CO2 35 mEq/l Bedside Blood Gas Base Excess (LAB) 6.0 meq/L Bedside Blood Gas O2 Saturation 100.0 % Steven Test Pass Oxygen Delivery Device BIPAP Bedside Oxygen Rate (breaths/min) 12 Bedside FiO2 50 % Blood Gas IPAP 18 Sodium Level 138 mmol/L Potassium Level 4.3 mmol/L Chloride Level 102 mmol/L Carbon Dioxide Level 32 mmol/L Anion Gap 4.0 mmol/L Blood Urea Nitrogen 15 mg/dl Creatinine 1.30 mg/dl Est Creatinine Clear Calc Drug Dose 118.7 ml/min Estimated GFR () 75.8 Estimated GFR (Non- 65.4 BUN/Creatinine Ratio 11.3 Random Glucose 127 mg/dl Calcium Level 7.5 mg/dl Random Vancomycin Level 10.5 mcg/ml Test 07/24/16 17:30 07/24/16 20:28 07/25/16 05:16 07/25/16 05:20 Blood Gas Sample Site L Radial Bedside Blood Gas pH (LAB) 7.37 Bedside Blood Gas pCO2 (LAB) 58 mmHg Bedside Blood Gas pO2 (LAB) 154 mmHg Bedside Blood Gas HCO3 (LAB) 33 meq/L Bedside Blood Gas Total CO2 35 mEq/l Bedside Blood Gas Base Excess (LAB) 8.0 meq/L Bedside Blood Gas O2 Saturation 99.0 % Steven Test Pass Oxygen Delivery Device Ventilator Bedside Oxygen Rate (breaths/min) 20 Blood Gas Minute Ventilation 8.9 Bedside FiO2 100 % Blood Gas Tidal Volume 500 Blood Gas PEEP 10 Lactic Acid Level 0.8 mmol/L 0.7 mmol/L Total Creatine Kinase 55 U/L Creatine Kinase MB < 0.5 ng/ml Creatine Kinase MB Ratio Troponin I < 0.015 ng/ml White Blood Count 10.99 K/uL Red Blood Count 4.39 M/uL Hemoglobin 11.8 g/dL Hematocrit 40.1 % Mean Corpuscular Volume 91.3 fL Mean Corpuscular Hemoglobin 26.9 pg Mean Corpuscular Hemoglobin Concent 29.4 g/dl Platelet Count 197 K/uL Mean Platelet Volume 10.2 fL Neutrophils (%) (Auto) 79.8 % Lymphocytes (%) (Auto) 8.9 % Monocytes (%) (Auto) 8.6 % Eosinophils (%) (Auto) 1.9 % Basophils (%) (Auto) 0.3 % Neutrophils # (Auto) 8.78 K/uL Lymphocytes # (Auto) 0.98 K/uL Monocytes # (Auto) 0.94 K/uL Eosinophils # (Auto) 0.21 K/uL Basophils # (Auto) 0.03 K/uL RDW Standard Deviation 53.5 fL RDW Coefficient of Variation 15.9 % Immature Granulocyte % (Auto) 0.5 % Immature Granulocyte # (Auto) 0.05 K/uL Prothrombin Time 13.4 SECONDS Prothromb Time International Ratio 1.2 Activated Partial Thromboplast Time 31.9 SECONDS Partial Thromboplastin Ratio 1.2 Sodium Level 139 mmol/L Potassium Level 3.6 mmol/L Chloride Level 103 mmol/L Carbon Dioxide Level 35 mmol/L Anion Gap 1.0 mmol/L Blood Urea Nitrogen 10 mg/dl Creatinine 0.94 mg/dl Est Creatinine Clear Calc Drug Dose 163.3 ml/min Estimated GFR () 112.2 Estimated GFR (Non- 96.8 BUN/Creatinine Ratio 10.4 Random Glucose 102 mg/dl Calcium Level 7.4 mg/dl Phosphorus Level 1.9 mg/dl Magnesium Level 2.8 mg/dl Total Bilirubin 0.5 mg/dl Direct Bilirubin 0.2 mg/dl Aspartate Amino Transf (AST/SGOT) 7 U/L Alanine Aminotransferase (ALT/SGPT) 12 U/L Alkaline Phosphatase 61 U/L Total Protein 6.4 gm/dl Albumin 2.2 gm/dl Procalcitonin 0.10 ng/ml Bedside Glucose 108 mg/dl Test 07/25/16 08:56 Hepatitis C Antibody Screen NEG Assessment and Plan (1) Sepsis Assessment & Plan: continue abx, follow cultures. If remain negative will narrow therapy. continue supportive care (2) Cellulitis
--- NOTE | 2016-07-25 11:59 | DIAGNOSTIC IMAGING REPORT ---
LEFT FOOT MIN 3 VIEWS ROUTINE CLINICAL HISTORY: left foot injury trauma. Pain. COMPARISON: None. DISCUSSION: Findings of a distal first metatarsal osteotomy and screw fixation. Surgical stapling of the proximal phalanx of the great toe. Generalized soft tissue edema. Generalized degenerative change of the proximal interphalangeal joints throughout. No acute bony abnormality. Considerable dorsal soft tissue edema. IMPRESSION: Considerable soft tissue edema. Postoperative change. No acute bony abnormality. Electronically signed by: Luis Treviño M.D. 07/25/2016 11:57 AM Dictated Date/Time: 07/25/2016 11:56 AM
[2016-07-25 13:06] LABS: INFLUENZA A PCR Neg for Influ A (NEG); INFLUENZA B PCR Neg for Influ B (NEG)
[2016-07-25 13:16] LABS: LYME DISEASE AB IGG NEG (NEG)
[2016-07-25 13:19] LABS: LYME DISEASE AB IGM NEG (NEG)
--- NOTE | 2016-07-25 14:10 | Pharmacy Progress Note ---
Pharmacy Abx Dose Progress Nt Date of Service Jul 25, 2016. Pharmacy Dosing Scope The patient is currently receiving the following antimicrobial agents per Pharmacy consult: * Vancomycin 2000 mg IV every 12 hours * Zosyn extended infusion 4.5gm IV Q 8 hours * Levofloxacin 500mg IV Q 24 hours * Acyclovir 800mg IV Q 8 hours Objective Height (Feet): 6 Height (Inches): 2.00 Weight (Kilograms): 170.700 Vital Signs (Past 12Hrs) Vital Signs Past 12 Hours Date Time Temp Pulse Resp B/P (MAP) Pulse Ox O2 Delivery O2 Flow Rate FiO2 07/25/16 12:00 37.0 84 20 117/68 (84) 100 07/25/16 12:00 60 07/25/16 12:00 100 Mechanical Ventilator 60 07/25/16 10:35 60 07/25/16 10:00 36.9 86 19 112/67 (82) 95 07/25/16 08:00 100 Mechanical Ventilator 60 07/25/16 08:00 60 07/25/16 08:00 36.8 84 18 97/55 (69) 100 07/25/16 07:55 60 07/25/16 06:02 69 20 95/53 (67) 100 07/25/16 06:00 60 07/25/16 06:00 69 20 100 07/25/16 05:32 72 20 92/52 (65) 98 07/25/16 05:02 72 20 91/53 (66) 98 07/25/16 05:00 73 20 98 07/25/16 05:00 60 07/25/16 04:24 100 07/25/16 04:24 100 Mechanical Ventilator 80 07/25/16 04:13 79 20 99/55 (70) 97 07/25/16 04:00 37.0 82 20 96 07/25/16 03:02 78 20 104/54 (71) 98 07/25/16 03:00 79 20 99 07/25/16 02:11 60 07/25/16 02:02 74 20 107/59 (75) 100 07/25/16 02:00 74 20 100 Lab Results (24Hrs) Laboratory Tests (24 Hours) Test 07/24/16 20:28 07/25/16 05:16 Total Creatine Kinase 55 U/L (39-308) Lactic Acid Level 0.7 mmol/L (0.4-2.0) White Blood Count 10.99 K/uL (4.8-10.8) H Red Blood Count 4.39 M/uL (4.7-6.1) L Hemoglobin 11.8 g/dL (14.0-18.0) #L Hematocrit 40.1 % (42-52) L Mean Corpuscular Volume 91.3 fL (80-100) Mean Corpuscular Hemoglobin 26.9 pg (25-34) Mean Corpuscular Hemoglobin Concent 29.4 g/dl (32-36) L Platelet Count 197 K/uL (130-400) Mean Platelet Volume 10.2 fL (7.4-10.4) Neutrophils (%) (Auto) 79.8 % Lymphocytes (%) (Auto) 8.9 % Monocytes (%) (Auto) 8.6 % Eosinophils (%) (Auto) 1.9 % Basophils (%) (Auto) 0.3 % Neutrophils # (Auto) 8.78 K/uL (1.4-6.5) H Lymphocytes # (Auto) 0.98 K/uL (1.2-3.4) L Monocytes # (Auto) 0.94 K/uL (0.11-0.59) H Eosinophils # (Auto) 0.21 K/uL (0-0.5) Basophils # (Auto) 0.03 K/uL (0-0.2) Procalcitonin 0.10 ng/ml (0-0.5) Micro Results Date/Time Source Procedure Growth Status 07/24/16 04:00 Blood Blood Culture - Preliminary NO GROWTH TO DATE. Resulted 07/24/16 03:35 Blood Blood Culture - Preliminary NO GROWTH TO DATE. Resulted 07/24/16 06:00 Nasal MRSA DNA Surveillance Screen - Final Specimen Negative for MRSA by DNA Probe Complete 07/24/16 07:45 Sputum Expectorated Sputum Gram Stain - Final Resulted 07/24/16 07:45 Sputum Expectorated Sputum Sputum Culture - Preliminary MODERATE NORMAL VAUGHN Present, Final ... Resulted 07/24/16 09:00 Urine,Catheterized Urine Culture - Preliminary NO GROWTH - LESS THAN 1,000 COLONIES/... Resulted 07/24/16 06:00 Drainage-Deep Leg Lower Left Gram Stain - Final Resulted 07/24/16 06:00 Wound Culture - Preliminary Staphylococcus Aureus Resulted 07/24/16 06:00 Drainage-Deep Elbow Gram Stain - Final Resulted 07/24/16 06:00 Wound Culture - Preliminary Staphylococcus Aureus Resulted Assessment & Plan Assessment * 46 year old morbidly obese male (BMI 48.3) receiving VANCOMYCIN + ZOSYN + LEVOFLOXACIN + ACYCLOVIR for treatment of severe skin and soft tissue infxn * He does have a h/o DM and recent new tattoo * Currently staph aureus is growing in wound cx's of elbow and LLE; awaiting sensitivities; MRSA nasal swab was negative however * Today is Day # 2 of empiric antimicrobial therapy * Renal fxn has improved greatly over the last 24 hrs with hydration; SCr 1.9 -- >1.3-->0.94 on last set of labs. U.O. 1850mL yesterday; 500mL out thus far today. * BP's 90's/50's this AM with MAPs 65-70, not currently requiring pressors; sedated w/ propofol on vent Plan Vancomycin IV * Increase Vancomycin to 2100mg (12.3mg/kg) Q 8 hours for improved renal fxn * Goal trough level for severe skin/skin structure infection; possible sepsis : 15 to 20 mcg/mL * Trough ordered for: 07/26/16 AM - checking trough rather early given difficulty estimating p'kinetics in a patient of this size * P'kinetic parameters are difficult to estimate in a patient of this body habitus, however given BMI of > 40: Vd 0.55L/kg; half-life 6-7 hrs; Raymond 0.108 hr -1 Piperacillin/tazobactam * Continue 4.5 g IV extended infusion every 8 hours for eCrCl greater than 20 mL /min Acyclovir * Continue 800mg (10mg/kg IBW) IV Q 8 hrs for eCrCl greater than 50cc/min Pharmacy will continue to follow and will adjust dose/frequency as necessary. Thank you.
[2016-07-25] MEDS: LORAZEPAM 2 MG/ML 1 ML VIAL IV SCH ×2 (15:10→20:31)
[2016-07-25] MEDS: VANCOMYCIN INJ 2,100 MG in SODIUM CHLORIDE 0.9% 500ML 500 ML IV SCH ×2 (16:01→23:51)
[2016-07-25] MEDS ORDERED: ENOXAPARIN 30 MG/0.3 ML SYR SQ SCH (21:00)
--- NOTE | 2016-07-25 21:14 | Hospitalist Progress Note ---
Hospitalist Progress Note Date of Service Jul 25, 2016. Subjective Pt evaluation today including: physical exam, lab review, review of inpatient medication list Voiding: barksdale catheter in place Pt intubated last evening due to hypercarbic and hypoxemic resp failure. Remains on vent. Additional Comments: unobtainable due to sedation Objective Vital Signs Date Time Temp Pulse Resp B/P (MAP) Pulse Ox O2 Delivery O2 Flow Rate FiO2 07/25/16 19:17 50 07/25/16 18:00 36.7 73 20 103/63 (76) 98 07/25/16 17:57 50 07/25/16 16:00 100 Mechanical Ventilator 50 07/25/16 16:00 36.9 83 20 105/67 (80) 98 07/25/16 16:00 50 07/25/16 15:50 50 07/25/16 13:50 60 07/25/16 12:00 37.0 84 20 117/68 (84) 100 07/25/16 12:00 60 07/25/16 12:00 100 Mechanical Ventilator 60 07/25/16 10:35 60 07/25/16 10:00 36.9 86 19 112/67 (82) 95 07/25/16 08:00 100 Mechanical Ventilator 60 07/25/16 08:00 60 07/25/16 08:00 36.8 84 18 97/55 (69) 100 07/25/16 07:55 60 07/25/16 06:02 69 20 95/53 (67) 100 07/25/16 06:00 60 07/25/16 06:00 69 20 100 07/25/16 05:32 72 20 92/52 (65) 98 07/25/16 05:02 72 20 91/53 (66) 98 07/25/16 05:00 73 20 98 07/25/16 05:00 60 07/25/16 04:24 100 07/25/16 04:24 100 Mechanical Ventilator 80 07/25/16 04:13 79 20 99/55 (70) 97 07/25/16 04:00 37.0 82 20 96 07/25/16 03:02 78 20 104/54 (71) 98 07/25/16 03:00 79 20 99 07/25/16 02:11 60 07/25/16 02:02 74 20 107/59 (75) 100 07/25/16 02:00 74 20 100 07/25/16 01:32 72 20 105/56 (72) 100 07/25/16 01:02 75 20 106/56 (73) 100 07/25/16 01:00 75 20 100 07/25/16 00:32 74 20 95/54 (68) 100 07/25/16 00:02 75 20 93/48 (63) 100 07/25/16 00:00 37.0 74 20 100 07/25/16 00:00 100 07/25/16 00:00 100 Mechanical Ventilator 80 07/24/16 23:32 80 07/24/16 23:32 75 20 90/51 (64) 100 07/24/16 23:02 81 20 97/51 (66) 100 07/24/16 23:00 93 20 100 07/24/16 22:02 87 20 107/51 (69) 100 07/24/16 22:00 83 20 100 07/24/16 21:32 82 20 99/50 (66) 100 Physical Exam General Appearance: no apparent distress, + obese ENT: + pertinent finding (ET tube in place) Neck: trachea midline Respiratory/Chest: lungs clear (but distant/diminished BS due to body habitus) , normal breath sounds, no respiratory distress, no accessory muscle use Cardiovascular: regular rate, rhythm, no murmur, + pertinent finding (2+ pitting edema legs to thighs bilat) Abdomen: normal bowel sounds, soft, + pertinent finding (obese) Extremities: + swelling (as above) Neurologic/Psychiatric: + pertinent finding (sedated) Skin: + rash (diffuse erythematous papules and crusted pustules on extremities , abdomen; left lateral elbow with large crusted over lesion) Laboratory Results Last 24 Hours Test 07/25/16 00:00 07/25/16 05:16 07/25/16 05:20 07/25/16 08:56 Influenza Type A (RT-PCR) Neg for Influ A Influenza Type B (RT-PCR) Neg for Influ B White Blood Count 10.99 K/uL Red Blood Count 4.39 M/uL Hemoglobin 11.8 g/dL Hematocrit 40.1 % Mean Corpuscular Volume 91.3 fL Mean Corpuscular Hemoglobin 26.9 pg Mean Corpuscular Hemoglobin Concent 29.4 g/dl Platelet Count 197 K/uL Mean Platelet Volume 10.2 fL Neutrophils (%) (Auto) 79.8 % Lymphocytes (%) (Auto) 8.9 % Monocytes (%) (Auto) 8.6 % Eosinophils (%) (Auto) 1.9 % Basophils (%) (Auto) 0.3 % Neutrophils # (Auto) 8.78 K/uL Lymphocytes # (Auto) 0.98 K/uL Monocytes # (Auto) 0.94 K/uL Eosinophils # (Auto) 0.21 K/uL Basophils # (Auto) 0.03 K/uL RDW Standard Deviation 53.5 fL RDW Coefficient of Variation 15.9 % Immature Granulocyte % (Auto) 0.5 % Immature Granulocyte # (Auto) 0.05 K/uL Prothrombin Time 13.4 SECONDS Prothromb Time International Ratio 1.2 Activated Partial Thromboplast Time 31.9 SECONDS Partial Thromboplastin Ratio 1.2 Sodium Level 139 mmol/L Potassium Level 3.6 mmol/L Chloride Level 103 mmol/L Carbon Dioxide Level 35 mmol/L Anion Gap 1.0 mmol/L Blood Urea Nitrogen 10 mg/dl Creatinine 0.94 mg/dl Est Creatinine Clear Calc Drug Dose 163.3 ml/min Estimated GFR () 112.2 Estimated GFR (Non- 96.8 BUN/Creatinine Ratio 10.4 Random Glucose 102 mg/dl Lactic Acid Level 0.7 mmol/L Calcium Level 7.4 mg/dl Phosphorus Level 1.9 mg/dl Magnesium Level 2.8 mg/dl Total Bilirubin 0.5 mg/dl Direct Bilirubin 0.2 mg/dl Aspartate Amino Transf (AST/SGOT) 7 U/L Alanine Aminotransferase (ALT/SGPT) 12 U/L Alkaline Phosphatase 61 U/L Total Protein 6.4 gm/dl Albumin 2.2 gm/dl Procalcitonin 0.10 ng/ml Bedside Glucose 108 mg/dl Lyme Disease IgG Antibody NEG Lyme Disease IgM Antibody NEG Hepatitis C Antibody Screen NEG Test 07/25/16 12:22 07/25/16 18:02 Bedside Glucose 108 mg/dl 100 mg/dl Assessment and Plan 46 M with a h/o DMII, obesity, HTN, depression, here with sepsis and acute hypoxemic and hypercarbic respiratory failure requiring mechanical ventilation, with diffuse rash and diabetic leg infection. Sepsis/diabetic leg infection,Diffuse rash-likely Staph dermatitis as growing Staph out of two separate wound cxs. BCxs remain no growth so far. -continue vancomycin IV, Zosyn IV and Levaquin IV, acyclovir in case of disseminated Varicella but less likely Flu neg, Lyme neg -f/u pending blood cultures. -appreciate ID consult f/u serologies as available Acute hypoxemic and hypercarbic respiratory failure requiring mechanical ventilation, pulmonary infiltrates bilat Sputum cx growing normal jessica -could be ARDS vs atypical PNA -Appreciate Instrument/Control Technician management -wean off vent as tolerated Hypertension--hold HCTZ, furosemide and metoprolol available Lopressor 5 mg IV every 4 hours if bp allows to prevent reflex tachycardia -given 1 dose lasix IV this AM for positive fluid balance Depression-- hold the alprazolam, Abilify, buspirone, Celexa, gabapentin, and nortriptyline but watch for withdrawal -receiving ativan tid DMII: HgbA1C 6.2% here, not on any meds at home -accuchecks q6h add SSI or insulin gtt if glucose elevated GERD-- ranitidine 50 mg IV every 8 hours. Morbid obesity--suspect element of obesity hypoventilation syndrome, and will likely need CPAP at bedtime Proph-Lovenox Dispo-FC
[2016-07-25] MEDS: SODIUM CHLORIDE 0.9% 1000ML 1,000 ML IV SCH (23:51)
[2016-07-26] VITALS (21 sets, daily range): BP systolic 109–163; BP diastolic 60–100; PULSE 71–103; TEMP 36.7–37.1; O2SAT 92–100
[2016-07-26] MEDS: SODIUM CHLORIDE 0.9% 1000ML 1,000 ML IV SCH (00:17)
[2016-07-26] MEDS: PIPERACILL/TAZOBAC IV 4.5 GM in DEXTROSE 5% 100ML 100 ML IV SCH (01:46)
[2016-07-26] MEDS: ACYCLOVIR SOD INJ 800 MG in DEXTROSE 5% 250ML 250 ML IV SCH ×3 (01:47→17:14)
[2016-07-26] MEDS: PROPOFOL IV EMULSION 10 MG/ML 100 ML VIAL IV PRN (03:22)
[2016-07-26] MEDS: LEValbuterol HFA 15GM INHALER INH SCH (03:30)
[2016-07-26] MEDS: IPRATROPIUM BROMIDE HFA INHALER INH SCH (03:30)
[2016-07-26 05:57] LABS: ISTAT ALLEN TEST Pass; ISTAT ARTERIAL BLOOD GAS HCO3 30 meq/L (19-24); ISTAT ARTERIAL BLOOD GAS PCO2 59 mmHg (35-46); ISTAT ARTERIAL BLOOD GAS PO2 64 mmHg (80-95); ISTAT ARTERIAL BLOOD GAS pH 7.32 (7.35-7.45); ISTAT CARBON DIOXIDE 32 mEq/l (24-31); ISTAT DELIVERY SYSTEM Ventilator; ISTAT FIO2 35 %; ISTAT PEEP 5; ISTAT SITE L Radial
[2016-07-26] MEDS: LEVOFLOXACIN / D5W 500 MG in PREMIXED IN D5W 100 ML IV SCH (06:09)
[2016-07-26] MEDS ORDERED: VANCOMYCIN TROUGH SCH ×2 (07:30→08:30)
--- NOTE | 2016-07-26 07:40 | DIAGNOSTIC IMAGING REPORT ---
CHEST ONE VIEW PORTABLE CLINICAL HISTORY: sepsis dyspnea COMPARISON STUDY: 07/25/2016 FINDINGS: Endotracheal tube 3 cm above the arina. Moderate respiratory motion. Similar findings of congestive failure. Subtle improvement in visibility left hemidiaphragm. IMPRESSION: Stable components of mild congestive heart failure. Subtle improvement in aeration left lung base. Electronically signed by: Luis Treviño M.D. 07/26/2016 7:39 AM Dictated Date/Time: 07/26/2016 7:38 AM
[2016-07-26 08:53] LABS: BASO % 0.3 %; BASO ABS # 0.03 K/uL (0-0.2); COMPLETE YES; EOS % 4.7 %; HEMATOCRIT 39.5 % (42-52); IG% 0.4 %; LYMPH % 10.4 %; LYMPH ABS # 0.96 K/uL (1.2-3.4); MEAN CELL VOLUME 91.2 fL (80-100); MEAN CORPUSCULAR HEMOGLOBIN 28.2 pg (25-34); MEAN CORPUSCULAR HGB CONC 30.9 g/dl (32-36); MEAN PLATELET VOLUME 10.7 fL (7.4-10.4); MONO % 8.7 %; NEUT % 75.5 %; PLATELET COUNT 209 K/uL (130-400); RED BLOOD COUNT 4.33 M/uL (4.7-6.1)
[2016-07-26] MEDS: CHLORHEXIDINE GLUCONATE 0.12% 15 ML UDP MT SCH ×2 (09:00→21:00)
[2016-07-26 09:08] LABS: INR 1.1 (0.9-1.1); PROTHROMBIN TIME (PATIENT) 11.7 SECONDS (9.0-12.0)
[2016-07-26 09:28] LABS: BUN/CREATININE RATIO 6.2 (10-20); CREATININE 0.78 mg/dl (0.60-1.40); MAGNESIUM 2.6 mg/dl (1.8-2.4); POTASSIUM 3.9 mmol/L (3.5-5.1)
[2016-07-26 10:08] LABS: CALCIUM 7.9 mg/dl (8.5-10.1)
[2016-07-26] MEDS: LORAZEPAM 2 MG/ML 1 ML VIAL IV SCH ×3 (10:20→22:20)
[2016-07-26] MEDS: PANTOprazole INJ 40 MG in SYRINGE 0 ML IV SCH (10:20)
[2016-07-26] MEDS: FUROSEMIDE INJ 20 MG in SYRINGE 0 ML IV SCH (10:21)
[2016-07-26] MEDS ORDERED: POTASSIUM PHOS 3 MMOL/1 ML INFUSION IV STA (10:22)
[2016-07-26] MEDS ORDERED: SODIUM CHLOR 0.45% + 20MEQ KCL 1,000 ML IV SCH (10:30)
[2016-07-26] MEDS ORDERED: POTASSIUM PHOSPHATE INJ 21 MMOL in SODIUM CHLORIDE 0.9% 500ML 500 ML IV SCH (10:45)
--- NOTE | 2016-07-26 10:53 | Critical Care Progress Note ---
Critical Care Progress Note Date of Service Jul 26, 2016. ICU Day ICU Day Number: [address] Ibrahim Subjective Patient had a breathing trial overnight however did not tolerate the CPAP and because tachypnic. There is question if this was anxiety based. CAM was negative this morning and patient shook his head no when asked if he was in any pain. However after this assessment the nurse informed us he was c/o 10/10 chest pain without diaphoresis or nausea. We did attempt a second spontaneous breathing trial which patient tolerated so plan for extubation. Objective General: Obese, sedated and on mechanical ventilation Skin: blister like lesions on the back bilat UE, eschar noted on a large lesion on the left UE, bilat LE are erythematous with stasis dermatitis, ulcerations on posterior aspect of bilat LE, multiple tattoos noted CVS: S1/ S2 noted, RRR, no rubs/ murmurs noted, no cyanosis RESP: decreased to bilat bases, occasional coarse breath sound noted, difficult to hear well because of body habitus Neck: Large neck, inspection WNL ABD: BSx4, obese, soft to palpation, no overt organomegaly however difficult to palpate well because of obesity MSK: bilat LE are swollen and erythematous, +2 pitting edema bilat NVS:PERRL, patient does not respond to voice or pain Lymph: No lymphadenopathy palpable Current SOFA Score SOFA Score Response (Comments) Value Platelets (x10) > 150 0 Bilirubin (mg/dL) < 1.2 0 Duane Coma Score < 6 4 Level of Hypotension No Hypotension 0 Creatinine (mg/dL) < 1.2 0 Total 4 Assessment & Plan 1. Sepsis from an undetermined source; possibly cutaneous vs pulmonary; does have exposure to rodents 2. Acute hypoxemic hypercapnic respiratory failure - patient has been successfully extubated 3. Bilat LE cellulitis- no LE DVT visualized 4. Obesity Hypoventilation Syndrome 5. Depression/ Anxiety- chronic use of Benzo from Psychiatrist 6. Morbid Obesity 7. Hypophosphatemia 8. MORIS- resolved 9. Chest pain NYD NVS - sedation has been d/c and patient is extubated - PDMP reviewed and no concerns - scheduled benzos - will have ativan 1 mg tid to avoid withdrawal - patient is on multiple neuro agents which includes Abilify 5 mg hs, buspar 30 mg tid, celexa 40 mg, nortriptyline 75 mg - will restart gabapentin and buspar but at 30 mg bid as Qtc is prolonged at 477 CVS -echo was done yesterday * The left ventricle is normal in size, EF > 70%, LV hyperdynamic, normal LV thickness - no or significant MR- none of valves well seen - difficult study - will defer SERGEY as patient has had significant improvement clinically - restart Lasix 20 mg daily as positive fluid balance - continue to hold losartan, HCTZ as bp appropriate but will restart Toprol, follow vitals - EKG had some flattened t waves in inferior leads so will trend troponin RESP - extubated - CTA to r/o PE negative - continue xopenex and ipratropium prn - Meduri protocol considered however based on clinical improvement will hold ID - consult ID - Currently on Acyclovir - zosyn and levaquin d/c - Cefazolin - rodent based diseases considered and are not limited to tularemia ( lesions however are not localized and no palpable lymphadenopathy) , leptospirosis ( no conjunctivitis or diarrhea), Hantavirus ( no thrombocytopenia or atypical lymphocytosis) - hantavirus pcr pending - will r/o Hep C, lyme, influenza and HIV - Wound cx- MSSA - Blood cx pending, negative to date GI - advance as tolerated - cont Pantoprazole 40 mg daily [place] body wt 181 lbs - continue to monitor I&O - 1/2 NSS 20 K @ 75cc/h FEN - Hypophos was repleted with 21mml K phos - continue to follow and replete prn ENDO - BSG ACHS - HBA1C 6.3 DVT Prophylaxis Enoxaparin 40 bid Resident Physician Supervision Note: Dr. Esparza was resident physician during care of patient. I separately evaluated patient and did history and exam. I discussed the case with the resident and generally agree with the findings and plan. Infectious disease: MSSA, we'll downgraded to cefazolin, discontinue vancomycin and broad-spectrum will leave antivirals at this time Hanta virus serology sent however doubtful. We will treat for 10 day course for presumption of nonpurulent skin and soft tissue infection Patient had significant improvement in his pulmonary status, was able to be extubated today, I reviewed the CT scan from yesterday no significant groundglass opacities, no pulmonary embolism Increased Lovenox dose for prophylaxis, concern for effectiveness of DVT prophylaxis in setting of morbid obesity I have personally spent 45 minutes of critical care time in the direct management of this patient. This is a life/limb threatening event. This includes time spent evaluating patient, direct bedside care, chart review, placing orders, interpretation of diagnostic studies, discussion with consultants, patient, and family members, as well as other required patient management activities. This time is exclusive of all separately billable procedures, and teaching time and separate from and in addition to any other critical care service time. Documented By: Chuck Ibrahim DO WIYOT II Score Date Score Was Generated: Jul 25, 2016 Consults & Procedures Consultants: NAN Winter Procedures: Intubation 07/24/16 Data Medications: Current Inpatient Medications Medications (Trade) Dose Ordered Sig/Mariel Route Start Time Stop Time Status Last Admin Dose Admin Acetaminophen (Tylenol Tab) 650 mg Q4H PRN PO 07/24/16 04:45 08/23/16 04:44 Ipratropium Herod (Atrovent 0.02% 0.5MG/2.5ML Neb) 0.5 mg Q2H PRN INH 07/24/16 05:00 08/23/16 04:59 Levalbuterol (Xopenex 1.25MG/ 0.5ML Neb) 1.25 mg Q2H PRN INH 07/24/16 05:00 08/23/16 04:59 Acetaminophen 100 ml @ 400 mls/hr Q8H PRN IV 07/24/16 06:15 08/23/16 06:14 07/24/16 08:46 400 MLS/HR Metoprolol Tartrate (Lopressor Iv) 5 mg Q4 PRN IV 07/24/16 06:15 08/23/16 06:14 Acyclovir Sodium 800 mg/Dextrose 266 ml @ 250 mls/hr Q8@0200,1000,1800 IV 07/24/16 11:00 08/03/16 10:59 07/26/16 10:18 250 MLS/HR Acyclovir Sodium (Consult) 1 ea UD PRN N/A 07/24/16 10:45 08/23/16 10:44 Heparin Sodium (Porcine) (Heparin 10 Unit/ ml 5 ml Flush) 5 ml PRN PRN FLUSH 07/24/16 12:30 08/23/16 12:29 Chlorhexidine Gluconate (Peridex Oral Soln 15ML Udp) 15 ml BID MT 07/24/16 21:00 08/23/16 20:59 07/25/16 20:30 15 ML Propofol (Diprivan Iv Emulsion 100ml Vial) 1 dose UD PRN IV 07/24/16 16:15 07/27/16 16:14 07/26/16 03:22 1 DOSE Ipratropium Herod (Atrovent Hfa Inhaler) 4 puffs Q4R INH 07/24/16 20:00 08/23/16 19:59 07/26/16 03:30 4 PUFFS Pantoprazole Sodium 40 mg/ Syringe 10 ml @ 5 mls/min DAILY@11 IV 07/25/16 11:00 08/24/16 10:59 07/26/16 10:20 5 MLS/MIN Ioversol (Optiray 320) 100 ml UD PRN IV 07/25/16 08:30 07/29/16 08:29 Lorazepam (Ativan Inj) 1 mg TID IV 07/25/16 14:00 08/24/16 13:59 07/26/16 10:20 1 MG Furosemide 20 mg/ Syringe 2 ml @ 4 mls/min DAILY IV 07/26/16 09:00 08/25/16 08:59 07/26/16 10:21 4 MLS/MIN Cefazolin Sodium 2000 mg/Dextrose 60 ml @ 120 mls/hr Q6H IV 07/26/16 12:00 08/05/16 11:59 Enoxaparin Sodium (Lovenox Inj) 40 mg Q12H SQ 07/26/16 11:00 08/25/16 10:59 Gabapentin (Neurontin) 600 mg QID PO 07/26/16 13:00 08/25/16 12:59 Potassium Chloride/Sodium Chloride 1,000 ml @ 75 mls/hr [id number] IV 07/26/16 10:30 08/25/16 10:29 07/26/16 10:23 75 MLS/HR Buspirone HCl (BusPAR TAB) 30 mg BID NG 07/26/16 21:00 08/25/16 20:59 Potassium Phosphate (Potassium Phosphate Replacement) 21 mmol NOW STAT IV 07/26/16 10:22 07/26/16 10:23 UNV Vital Signs: Date Time Temp Pulse Resp B/P (MAP) Pulse Ox O2 Delivery O2 Flow Rate FiO2 07/26/16 08:00 37.1 88 22 127/71 (89) 96 Mechanical Ventilator 35 07/26/16 08:00 92 Mechanical Ventilator 35 07/26/16 08:00 40 07/26/16 07:09 35 07/26/16 06:10 35 07/26/16 06:03 103 40 163/100 100 07/26/16 05:49 35 07/26/16 05:32 88 21 127/81 93 07/26/16 05:02 78 21 121/75 95 07/26/16 05:00 35 07/26/16 04:32 81 20 123/77 93 07/26/16 04:02 84 20 113/71 93 07/26/16 04:00 Mechanical Ventilator 07/26/16 04:00 40 07/26/16 04:00 36.9 07/26/16 03:02 84 21 109/69 94 07/26/16 02:32 83 23 123/71 94 07/26/16 02:02 79 20 123/76 92 07/26/16 01:42 40 07/26/16 01:02 82 21 121/76 95 07/26/16 00:02 75 20 121/60 97 07/26/16 00:00 40 07/26/16 00:00 36.7 07/25/16 23:21 50 07/25/16 23:02 88 22 147/75 100 07/25/16 22:02 72 20 114/59 97 07/25/16 21:02 76 20 118/74 96 07/25/16 20:30 36.6 07/25/16 20:30 50 07/25/16 20:02 71 20 104/58 98 07/25/16 19:17 50 07/25/16 18:00 36.7 73 20 103/63 (76) 98 07/25/16 17:57 50 07/25/16 16:00 100 Mechanical Ventilator 50 07/25/16 16:00 36.9 83 20 105/67 (80) 98 07/25/16 16:00 50 07/25/16 15:50 50 07/25/16 13:50 60 07/25/16 12:00 37.0 84 20 117/68 (84) 100 07/25/16 12:00 60 07/25/16 12:00 100 Mechanical Ventilator 60 07/25/16 10:35 60 Laboratory Results: Last 24 Hours Test 07/25/16 12:22 07/25/16 18:02 07/25/16 23:59 07/26/16 05:44 Bedside Glucose 108 mg/dl 100 mg/dl 73 mg/dl Blood Gas Sample Site L Radial Bedside Blood Gas pH (LAB) 7.32 Bedside Blood Gas pCO2 (LAB) 59 mmHg Bedside Blood Gas pO2 (LAB) 64 mmHg Bedside Blood Gas HCO3 (LAB) 30 meq/L Bedside Blood Gas Total CO2 32 mEq/l Bedside Blood Gas Base Excess (LAB) 4.0 meq/L Bedside Blood Gas O2 Saturation 90.0 % Steven Test Pass Oxygen Delivery Device Ventilator Bedside FiO2 35 % Blood Gas PEEP 5 Test 07/26/16 06:01 07/26/16 08:46 Bedside Glucose 83 mg/dl White Blood Count 9.20 K/uL Red Blood Count 4.33 M/uL Hemoglobin 12.2 g/dL Hematocrit 39.5 % Mean Corpuscular Volume 91.2 fL Mean Corpuscular Hemoglobin 28.2 pg Mean Corpuscular Hemoglobin Concent 30.9 g/dl Platelet Count 209 K/uL Mean Platelet Volume 10.7 fL Neutrophils (%) (Auto) 75.5 % Lymphocytes (%) (Auto) 10.4 % Monocytes (%) (Auto) 8.7 % Eosinophils (%) (Auto) 4.7 % Basophils (%) (Auto) 0.3 % Neutrophils # (Auto) 6.94 K/uL Lymphocytes # (Auto) 0.96 K/uL Monocytes # (Auto) 0.80 K/uL Eosinophils # (Auto) 0.43 K/uL Basophils # (Auto) 0.03 K/uL RDW Standard Deviation 52.8 fL RDW Coefficient of Variation 15.7 % Immature Granulocyte % (Auto) 0.4 % Immature Granulocyte # (Auto) 0.04 K/uL Prothrombin Time 11.7 SECONDS Prothromb Time International Ratio 1.1 Sodium Level 141 mmol/L Potassium Level 3.9 mmol/L Chloride Level 104 mmol/L Carbon Dioxide Level 32 mmol/L Anion Gap 5.0 mmol/L Creatinine 0.78 mg/dl Est Creatinine Clear Calc Drug Dose 204.1 ml/min Estimated GFR () 125.5 Estimated GFR (Non- 108.3 BUN/Creatinine Ratio 6.2 Random Glucose 85 mg/dl Calcium Level 7.9 mg/dl Phosphorus Level 2.0 mg/dl Magnesium Level 2.6 mg/dl Total Bilirubin 0.5 mg/dl Direct Bilirubin 0.2 mg/dl Aspartate Amino Transf (AST/SGOT) 8 U/L Alanine Aminotransferase (ALT/SGPT) 10 U/L Alkaline Phosphatase 55 U/L Total Protein 6.6 gm/dl Albumin 2.1 gm/dl Vancomycin Level Trough 21.4 mcg/ml
[2016-07-26] MEDS: ENOXAPARIN 40 MG/0.4 ML SYR SQ SCH ×2 (11:12→22:20)
[2016-07-26] MEDS: CEFAZOLIN SOD 2000 MG in DEXTROSE 5% 50ML IV SCH ×3 (11:12→23:38)
[2016-07-26] MEDS: GABAPENTIN 250 MG/5 ML 470 ML BTL PO SCH ×3 (13:45→21:06)
--- NOTE | 2016-07-26 14:25 | Progress Note ---
Subjective Date of Service: Jul 26, 2016. Subjective Pt evaluation today including: conversation w/ patient, physical exam, chart review, lab review pt extubated. breathing well, denies cough, some sob. no cp. no f/c. blood cultures remain negative, lesions/cellulitis improving on abx. sputum culture with nml jessica, urine culture negative. additional serologies pending. denies any pain. overall feeling better, remaining ros reviewed and negative. Problem List Medical Problems: (1) Cellulitis Status: Acute (2) Sepsis Status: Acute Objective Vital Signs Date Time Temp Pulse Resp B/P (MAP) Pulse Ox O2 Delivery O2 Flow Rate FiO2 07/26/16 08:00 37.1 88 22 127/71 (89) 96 Mechanical Ventilator 35 07/26/16 08:00 92 Mechanical Ventilator 35 07/26/16 08:00 40 07/26/16 07:09 35 07/26/16 06:10 35 07/26/16 06:03 103 40 163/100 100 07/26/16 05:49 35 07/26/16 05:32 88 21 127/81 93 07/26/16 05:02 78 21 121/75 95 07/26/16 05:00 35 07/26/16 04:32 81 20 123/77 93 07/26/16 04:02 84 20 113/71 93 07/26/16 04:00 Mechanical Ventilator 07/26/16 04:00 40 07/26/16 04:00 36.9 07/26/16 03:02 84 21 109/69 94 07/26/16 02:32 83 23 123/71 94 07/26/16 02:02 79 20 123/76 92 07/26/16 01:42 40 07/26/16 01:02 82 21 121/76 95 07/26/16 00:02 75 20 121/60 97 07/26/16 00:00 40 07/26/16 00:00 36.7 07/25/16 23:21 50 07/25/16 23:02 88 22 147/75 100 07/25/16 22:02 72 20 114/59 97 07/25/16 21:02 76 20 118/74 96 07/25/16 20:30 36.6 07/25/16 20:30 50 07/25/16 20:02 71 20 104/58 98 07/25/16 19:17 50 07/25/16 18:00 36.7 73 20 103/63 (76) 98 07/25/16 17:57 50 07/25/16 16:00 100 Mechanical Ventilator 50 07/25/16 16:00 36.9 83 20 105/67 (80) 98 07/25/16 16:00 50 07/25/16 15:50 50 Physical Exam General Appearance: WD/WN, no apparent distress Eyes: normal inspection, PERRL Neck: supple Respiratory/Chest: lungs clear, normal breath sounds, no respiratory distress, + decreased breath sounds Cardiovascular: regular rate, rhythm Abdomen: non tender, soft Extremities: non-tender, + inflammation, + pedal edema Neurologic/Psychiatric: alert, oriented x 3 Skin: + pertinent finding (skin lesions improving, no weeping/crusting noted) Laboratory Results Item Value Date Time Gram Stain - Final Complete 07/24/16 0600 Drainage-Deep Elbow Gram Stain - Final Complete 07/24/16 0600 Drainage-Deep Leg Lower Left Urine Culture - Final Complete 07/24/16 0900 Urine,Catheterized NO GROWTH - LESS THAN 1,000 COLONIES/ML Gram Stain - Final Complete 07/24/16 0745 Sputum Expectorated Sputum Blood Culture - Preliminary Resulted 07/24/16 0400 Blood NO GROWTH TO DATE. Blood Culture - Preliminary Resulted 07/24/16 0335 Blood NO GROWTH TO DATE. Last 24 Hours Test 07/25/16 18:02 07/25/16 23:59 07/26/16 05:44 07/26/16 06:01 Bedside Glucose 100 mg/dl 73 mg/dl 83 mg/dl Blood Gas Sample Site L Radial Bedside Blood Gas pH (LAB) 7.32 Bedside Blood Gas pCO2 (LAB) 59 mmHg Bedside Blood Gas pO2 (LAB) 64 mmHg Bedside Blood Gas HCO3 (LAB) 30 meq/L Bedside Blood Gas Total CO2 32 mEq/l Bedside Blood Gas Base Excess (LAB) 4.0 meq/L Bedside Blood Gas O2 Saturation 90.0 % Steven Test Pass Oxygen Delivery Device Ventilator Bedside FiO2 35 % Blood Gas PEEP 5 Test 07/26/16 08:46 07/26/16 12:08 07/26/16 12:31 White Blood Count 9.20 K/uL Red Blood Count 4.33 M/uL Hemoglobin 12.2 g/dL Hematocrit 39.5 % Mean Corpuscular Volume 91.2 fL Mean Corpuscular Hemoglobin 28.2 pg Mean Corpuscular Hemoglobin Concent 30.9 g/dl Platelet Count 209 K/uL Mean Platelet Volume 10.7 fL Neutrophils (%) (Auto) 75.5 % Lymphocytes (%) (Auto) 10.4 % Monocytes (%) (Auto) 8.7 % Eosinophils (%) (Auto) 4.7 % Basophils (%) (Auto) 0.3 % Neutrophils # (Auto) 6.94 K/uL Lymphocytes # (Auto) 0.96 K/uL Monocytes # (Auto) 0.80 K/uL Eosinophils # (Auto) 0.43 K/uL Basophils # (Auto) 0.03 K/uL RDW Standard Deviation 52.8 fL RDW Coefficient of Variation 15.7 % Immature Granulocyte % (Auto) 0.4 % Immature Granulocyte # (Auto) 0.04 K/uL Prothrombin Time 11.7 SECONDS Prothromb Time International Ratio 1.1 Sodium Level 141 mmol/L Potassium Level 3.9 mmol/L Chloride Level 104 mmol/L Carbon Dioxide Level 32 mmol/L Anion Gap 5.0 mmol/L Blood Urea Nitrogen 5 mg/dl Creatinine 0.78 mg/dl Est Creatinine Clear Calc Drug Dose 204.1 ml/min Estimated GFR () 125.5 Estimated GFR (Non- 108.3 BUN/Creatinine Ratio 6.2 Random Glucose 85 mg/dl Calcium Level 7.9 mg/dl Phosphorus Level 2.0 mg/dl Magnesium Level 2.6 mg/dl Total Bilirubin 0.5 mg/dl Direct Bilirubin 0.2 mg/dl Aspartate Amino Transf (AST/SGOT) 8 U/L Alanine Aminotransferase (ALT/SGPT) 10 U/L Alkaline Phosphatase 55 U/L Total Protein 6.6 gm/dl Albumin 2.1 gm/dl Vancomycin Level Trough 21.4 mcg/ml Troponin I < 0.015 ng/ml Bedside Glucose 90 mg/dl Assessment and Plan (1) Sepsis Assessment & Plan: will narrow abx and continue to follow cultures, continue supportive care afebrile. (2) Cellulitis
[2016-07-26] MEDS: ALBUTEROL 0.083% NEBU SOLN 3 ML VIAL INH SCH (19:51)
[2016-07-26] MEDS ORDERED: BusPIRone 15 MG TAB NG SCH (21:00)
[2016-07-26] MEDS: BusPIRone 15 MG TAB PO SCH (21:04)
[2016-07-26] MEDS: METOPROLOL TARTRATE 100 MG TAB PO SCH (21:05)
[2016-07-27] VITALS (11 sets, daily range): BP systolic 126–155; BP diastolic 66–96; PULSE 68–88; TEMP 36.7–37.4; O2SAT 90–99
--- NOTE | 2016-07-27 00:05 | Hospitalist Progress Note ---
Hospitalist Progress Note Date of Service Jul 26, 2016. Subjective Pt evaluation today including: conversation w/ patient Voiding: barksdale catheter in place Extubated today, feeling a little SOB at times that improves with neb treatment. Just quit smoking 1 month ago after many years of smoking. BPs good. Rash improving Constitutional: No fever Respiratory: + shortness of breath, No cough Cardiovascular: No chest pain Abdomen: No pain Skin: + rash All Other Systems: Reviewed and Negative Objective Vital Signs Date Time Temp Pulse Resp B/P (MAP) Pulse Ox O2 Delivery O2 Flow Rate FiO2 07/26/16 20:00 37.0 87 16 133/78 (96) 95 Nasal Cannula 2.0 07/26/16 20:00 Nasal Cannula 2.0 07/26/16 18:50 82 16 95 Nasal Cannula 2.0 07/26/16 18:00 37.0 85 18 119/67 (84) 100 Nasal Cannula 2.0 07/26/16 16:00 37.0 89 18 121/94 (103) 100 Nasal Cannula 2.0 35 07/26/16 16:00 Nasal Cannula 2.0 07/26/16 14:00 37.0 81 22 137/84 (101) 95 Nasal Cannula 2.0 07/26/16 12:00 Oxymask 3.0 Nasal Cannula 07/26/16 12:00 37.1 87 22 134/77 (96) 95 Nasal Cannula 2.0 07/26/16 10:00 37.1 73 22 131/66 (87) 97 Humidified Oxygen 35 07/26/16 08:00 37.1 88 22 127/71 (89) 96 Mechanical Ventilator 35 07/26/16 08:00 92 Mechanical Ventilator 35 07/26/16 08:00 40 07/26/16 07:09 35 07/26/16 06:10 35 07/26/16 06:03 103 40 163/100 100 07/26/16 05:49 35 07/26/16 05:32 88 21 127/81 93 07/26/16 05:02 78 21 121/75 95 07/26/16 05:00 35 07/26/16 04:32 81 20 123/77 93 07/26/16 04:02 84 20 113/71 93 07/26/16 04:00 Mechanical Ventilator 07/26/16 04:00 40 07/26/16 04:00 36.9 07/26/16 03:02 84 21 109/69 94 07/26/16 02:32 83 23 123/71 94 07/26/16 02:02 79 20 123/76 92 07/26/16 01:42 40 07/26/16 01:02 82 21 121/76 95 07/26/16 00:02 75 20 121/60 97 07/26/16 00:00 40 07/26/16 00:00 36.7 Physical Exam General Appearance: no apparent distress, + obese Eyes: normal inspection, sclerae normal ENT: hearing grossly normal Neck: trachea midline Respiratory/Chest: no respiratory distress, no accessory muscle use, + decreased breath sounds (throughout due to body habitus) Cardiovascular: regular rate, rhythm, no murmur, + pertinent finding (1+ pitting edema legs to knees bilat) Abdomen: normal bowel sounds, non tender, soft (and morbidly obese) Extremities: no calf tenderness Neurologic/Psychiatric: alert, + pertinent finding (flat affect) Skin: + rash (diffuse erythematous macules and pustules on chest, abdomen, extremities, large crusted lesion left lateral arm) Laboratory Results Last 24 Hours Test 07/25/16 23:59 07/26/16 05:44 07/26/16 06:01 07/26/16 08:46 Bedside Glucose 73 mg/dl 83 mg/dl Blood Gas Sample Site L Radial Bedside Blood Gas pH (LAB) 7.32 Bedside Blood Gas pCO2 (LAB) 59 mmHg Bedside Blood Gas pO2 (LAB) 64 mmHg Bedside Blood Gas HCO3 (LAB) 30 meq/L Bedside Blood Gas Total CO2 32 mEq/l Bedside Blood Gas Base Excess (LAB) 4.0 meq/L Bedside Blood Gas O2 Saturation 90.0 % Steven Test Pass Oxygen Delivery Device Ventilator Bedside FiO2 35 % Blood Gas PEEP 5 White Blood Count 9.20 K/uL Red Blood Count 4.33 M/uL Hemoglobin 12.2 g/dL Hematocrit 39.5 % Mean Corpuscular Volume 91.2 fL Mean Corpuscular Hemoglobin 28.2 pg Mean Corpuscular Hemoglobin Concent 30.9 g/dl Platelet Count 209 K/uL Mean Platelet Volume 10.7 fL Neutrophils (%) (Auto) 75.5 % Lymphocytes (%) (Auto) 10.4 % Monocytes (%) (Auto) 8.7 % Eosinophils (%) (Auto) 4.7 % Basophils (%) (Auto) 0.3 % Neutrophils # (Auto) 6.94 K/uL Lymphocytes # (Auto) 0.96 K/uL Monocytes # (Auto) 0.80 K/uL Eosinophils # (Auto) 0.43 K/uL Basophils # (Auto) 0.03 K/uL RDW Standard Deviation 52.8 fL RDW Coefficient of Variation 15.7 % Immature Granulocyte % (Auto) 0.4 % Immature Granulocyte # (Auto) 0.04 K/uL Prothrombin Time 11.7 SECONDS Prothromb Time International Ratio 1.1 Sodium Level 141 mmol/L Potassium Level 3.9 mmol/L Chloride Level 104 mmol/L Carbon Dioxide Level 32 mmol/L Anion Gap 5.0 mmol/L Blood Urea Nitrogen 5 mg/dl Creatinine 0.78 mg/dl Est Creatinine Clear Calc Drug Dose 204.1 ml/min Estimated GFR () 125.5 Estimated GFR (Non- 108.3 BUN/Creatinine Ratio 6.2 Random Glucose 85 mg/dl Calcium Level 7.9 mg/dl Phosphorus Level 2.0 mg/dl Magnesium Level 2.6 mg/dl Total Bilirubin 0.5 mg/dl Direct Bilirubin 0.2 mg/dl Aspartate Amino Transf (AST/SGOT) 8 U/L Alanine Aminotransferase (ALT/SGPT) 10 U/L Alkaline Phosphatase 55 U/L Total Protein 6.6 gm/dl Albumin 2.1 gm/dl Vancomycin Level Trough 21.4 mcg/ml Test 07/26/16 12:08 07/26/16 12:31 07/26/16 22:02 Troponin I < 0.015 ng/ml < 0.015 ng/ml Bedside Glucose 90 mg/dl Assessment and Plan 46 M with a h/o DMII, obesity, HTN, depression, here with sepsis and acute hypoxemic and hypercarbic respiratory failure requiring mechanical ventilation, with diffuse Staphylococcal folliculitis rash and diabetic leg infection. Sepsis/diabetic leg infection,Diffuse rash- Staph folliculitis with MSSA and Coag neg Staph growing on wound cxs. BCxs remain no growth so far. -was on vancomycin IV, Zosyn IV and Levaquin IV, acyclovir in case of disseminated Varicella but less likely -ID following and narrowed abx down today to Ancef, continue acyclovir -f/u Varicella Flu neg, Lyme neg -f/u pending blood cultures. -appreciate ID consult f/u serologies as available -no need for SERGEY at this point given less likely to have SBE given negative BCxs Acute hypoxemic and hypercarbic respiratory failure requiring mechanical ventilation, pulmonary infiltrates bilat. Extubated after 2 days, much improved. History of smoking and recently quit Sputum cx growing normal jessica -CTA Chest no PNA or infiltrate, no PE -Appreciate [employer]ing [employer] management -can downgrade to tele status today -add scheduled nebs Hypertension--hold HCTZ, giving daily IV furosemide and restarted po metoprolol today -can add back losartan possibly tomorrow if BPs ok -stop IVFs Depression, ANxiety-- most meds held initially while intubated -restart buspirone, Celexa, gabapentin, Abilify -receiving ativan tid DMII: HgbA1C 6.2% here, not on any meds at home -accuchecks q6h add SSI or insulin gtt if glucose elevated GERD-- ranitidine 50 mg IV every 8 hours. Morbid obesity--suspect element of obesity hypoventilation syndrome, and will likely need CPAP at bedtime Proph-Lovenox Dispo-FC
[2016-07-27] MEDS: ACYCLOVIR SOD INJ 800 MG in DEXTROSE 5% 250ML 250 ML IV SCH ×3 (02:04→18:32)
[2016-07-27] MEDS: ALBUTEROL 0.083% NEBU SOLN 3 ML VIAL INH SCH ×4 (02:30→19:08)
[2016-07-27] MEDS: CEFAZOLIN SOD 2000 MG in DEXTROSE 5% 50ML IV SCH ×4 (05:26→23:54)
[2016-07-27 06:03] LABS: BASO % 0.8 %; BASO ABS # 0.05 K/uL (0-0.2); COMPLETE YES; EOS % 6.2 %; IG% 0.5 %; LYMPH % 28.4 %; LYMPH ABS # 1.83 K/uL (1.2-3.4); MEAN CELL VOLUME 91.1 fL (80-100); MEAN CORPUSCULAR HEMOGLOBIN 27.3 pg (25-34); MEAN PLATELET VOLUME 10.6 fL (7.4-10.4); MONO % 10.1 %; PLATELET COUNT 209 K/uL (130-400); WHITE BLOOD COUNT 6.44 K/uL (4.8-10.8)
[2016-07-27 06:14] LABS: INR 1.1 (0.9-1.1); PROTHROMBIN TIME (PATIENT) 11.9 SECONDS (9.0-12.0)
[2016-07-27 06:41] LABS: ALT/SGPT 12 U/L (12-78); AST/SGOT 10 U/L (15-37); BLOOD UREA NITROGEN 5 mg/dl (7-18); BUN/CREATININE RATIO 6.2 (10-20); CALCIUM 7.8 mg/dl (8.5-10.1); CARBON DIOXIDE 30 mmol/L (21-32); CHLORIDE 106 mmol/L (98-107); CREATININE 0.81 mg/dl (0.60-1.40); GLUCOSE 89 mg/dl (70-99); MAGNESIUM 2.4 mg/dl (1.8-2.4); POTASSIUM 3.6 mmol/L (3.5-5.1); SODIUM 143 mmol/L (136-145)
[2016-07-27 06:50] LABS: ALKALINE PHOSPHATASE 56 U/L (45-117)
[2016-07-27] MEDS: PANTOprazole SOD 40 MG TAB PO SCH (08:48)
[2016-07-27] MEDS: LORAZEPAM 2 MG/ML 1 ML VIAL IV SCH ×2 (08:48→14:00)
[2016-07-27] MEDS: FUROSEMIDE INJ 20 MG in SYRINGE 0 ML IV SCH (08:48)
[2016-07-27] MEDS: GABAPENTIN 250 MG/5 ML 470 ML BTL PO SCH (08:48)
[2016-07-27] MEDS: CHLORHEXIDINE GLUCONATE 0.12% 15 ML UDP MT SCH ×2 (08:48→21:00)
[2016-07-27] MEDS: METOPROLOL TARTRATE 100 MG TAB PO SCH ×2 (08:48→21:42)
[2016-07-27] MEDS: BusPIRone 15 MG TAB PO SCH ×2 (08:48→21:42)
[2016-07-27] MEDS: CITALOPRAM 40 MG TAB PO SCH (09:59)
[2016-07-27] MEDS: ENOXAPARIN 40 MG/0.4 ML SYR SQ SCH ×2 (11:33→21:42)
[2016-07-27] MEDS: GABAPENTIN 600 MG TAB PO SCH ×3 (12:10→21:40)
--- NOTE | 2016-07-27 14:42 | Progress Note ---
Subjective Date of Service: Jul 27, 2016. Subjective tolerating abx. no fevers. blood cultures negative, abx narrowed, tolerating well. Problem List Medical Problems: (1) Cellulitis Status: Acute (2) Sepsis Status: Acute Objective Vital Signs Date Time Temp Pulse Resp B/P (MAP) Pulse Ox O2 Delivery O2 Flow Rate FiO2 07/27/16 11:30 37.0 72 18 128/88 (101) 96 Nasal Cannula 2.0 07/27/16 11:30 Nasal Cannula 2.0 07/27/16 08:32 88 16 99 Nasal Cannula 2.0 07/27/16 07:30 Nasal Cannula 2.0 07/27/16 07:30 36.7 72 14 140/66 (90) 96 Nasal Cannula 2.0 07/27/16 04:00 Nasal Cannula 2.0 07/27/16 04:00 37.1 75 14 126/68 (87) 94 Nasal Cannula 2.0 07/27/16 02:30 68 16 95 Nasal Cannula 2.0 07/26/16 23:59 Nasal Cannula 2.0 07/26/16 23:59 37.1 71 16 122/71 (88) 94 Nasal Cannula 2.0 07/26/16 20:00 37.0 87 16 133/78 (96) 95 Nasal Cannula 2.0 07/26/16 20:00 Nasal Cannula 2.0 07/26/16 18:50 82 16 95 Nasal Cannula 2.0 07/26/16 18:00 37.0 85 18 119/67 (84) 100 Nasal Cannula 2.0 07/26/16 16:00 37.0 89 18 121/94 (103) 100 Nasal Cannula 2.0 35 07/26/16 16:00 Nasal Cannula 2.0 Laboratory Results Item Value Date Time Blood Culture - Preliminary Resulted 07/24/16 0400 Blood NO GROWTH TO DATE. Blood Culture - Preliminary Resulted 07/24/16 0335 Blood NO GROWTH TO DATE. Gram Stain - Final Complete 07/24/16 0600 Drainage-Deep Elbow Gram Stain - Final Complete 07/24/16 0600 Drainage-Deep Leg Lower Left Last 24 Hours Test 07/26/16 22:02 07/27/16 05:47 Troponin I < 0.015 ng/ml < 0.015 ng/ml White Blood Count 6.44 K/uL Red Blood Count 4.50 M/uL Hemoglobin 12.3 g/dL Hematocrit 41.0 % Mean Corpuscular Volume 91.1 fL Mean Corpuscular Hemoglobin 27.3 pg Mean Corpuscular Hemoglobin Concent 30.0 g/dl Platelet Count 209 K/uL Mean Platelet Volume 10.6 fL Neutrophils (%) (Auto) 54.0 % Lymphocytes (%) (Auto) 28.4 % Monocytes (%) (Auto) 10.1 % Eosinophils (%) (Auto) 6.2 % Basophils (%) (Auto) 0.8 % Neutrophils # (Auto) 3.48 K/uL Lymphocytes # (Auto) 1.83 K/uL Monocytes # (Auto) 0.65 K/uL Eosinophils # (Auto) 0.40 K/uL Basophils # (Auto) 0.05 K/uL RDW Standard Deviation 52.3 fL RDW Coefficient of Variation 15.7 % Immature Granulocyte % (Auto) 0.5 % Immature Granulocyte # (Auto) 0.03 K/uL Prothrombin Time 11.9 SECONDS Prothromb Time International Ratio 1.1 Sodium Level 143 mmol/L Potassium Level 3.6 mmol/L Chloride Level 106 mmol/L Carbon Dioxide Level 30 mmol/L Anion Gap 7.0 mmol/L Blood Urea Nitrogen 5 mg/dl Creatinine 0.81 mg/dl Est Creatinine Clear Calc Drug Dose 193.5 ml/min Estimated GFR () 123.5 Estimated GFR (Non- 106.6 BUN/Creatinine Ratio 6.2 Random Glucose 89 mg/dl Calcium Level 7.8 mg/dl Phosphorus Level 3.0 mg/dl Magnesium Level 2.4 mg/dl Total Bilirubin 0.5 mg/dl Direct Bilirubin 0.2 mg/dl Aspartate Amino Transf (AST/SGOT) 10 U/L Alanine Aminotransferase (ALT/SGPT) 12 U/L Alkaline Phosphatase 56 U/L Total Protein 6.6 gm/dl Albumin 2.2 gm/dl Assessment and Plan (1) Sepsis Assessment & Plan: will narrow abx and continue to follow cultures, continue supportive care afebrile. (2) Cellulitis
[2016-07-27 19:40] LABS: VARICELLA ZOS VIR IGG VALUE <135.00 INDEX; VARICELLA ZOS VIR IGM AB <=0.90 (<=0.90)
--- NOTE | 2016-07-27 20:57 | Hospitalist Progress Note ---
Hospitalist Progress Note Date of Service Jul 27, 2016. Subjective Pt evaluation today including: conversation w/ patient Voiding: barksdale catheter in place feeling much better, weaned off O2 and ambulated today with PT, no concerns, rash improving, afebrile All Other Systems: Reviewed and Negative Objective Vital Signs Date Time Temp Pulse Resp B/P (MAP) Pulse Ox O2 Delivery O2 Flow Rate FiO2 07/27/16 19:08 76 16 92 Room Air 07/27/16 18:53 37.4 79 20 147/93 (111) 90 Nasal Cannula 07/27/16 16:00 Room Air 07/27/16 15:24 37.0 72 22 155/94 (114) 93 Room Air 07/27/16 15:00 74 16 97 Nasal Cannula 2.0 07/27/16 14:43 93 07/27/16 11:30 37.0 72 18 128/88 (101) 96 Nasal Cannula 2.0 07/27/16 11:30 Nasal Cannula 2.0 07/27/16 08:32 88 16 99 Nasal Cannula 2.0 07/27/16 07:30 Nasal Cannula 2.0 07/27/16 07:30 36.7 72 14 140/66 (90) 96 Nasal Cannula 2.0 07/27/16 04:00 Nasal Cannula 2.0 07/27/16 04:00 37.1 75 14 126/68 (87) 94 Nasal Cannula 2.0 07/27/16 02:30 68 16 95 Nasal Cannula 2.0 07/26/16 23:59 Nasal Cannula 2.0 07/26/16 23:59 37.1 71 16 122/71 (88) 94 Nasal Cannula 2.0 Physical Exam General Appearance: no apparent distress, + obese Eyes: normal inspection, sclerae normal ENT: hearing grossly normal Neck: trachea midline Respiratory/Chest: lungs clear, normal breath sounds, no respiratory distress, no accessory muscle use Cardiovascular: regular rate, rhythm, no murmur Abdomen: normal bowel sounds, non tender, soft (and morbidly obese) Extremities: + swelling (2+ woody edema bilat LEs) Neurologic/Psychiatric: alert, normal mood/affect, oriented x 3 Skin: + rash (scattered erythematous and some purple-colored macules, papules and crusted pustules, healing and improving on legs, abd,chest, arms, left arm with larger area of cellulitis and crusting much imrpoved) Laboratory Results Last 24 Hours Test 07/26/16 22:02 07/27/16 05:47 07/27/16 16:22 07/27/16 19:55 Troponin I < 0.015 ng/ml < 0.015 ng/ml White Blood Count 6.44 K/uL Red Blood Count 4.50 M/uL Hemoglobin 12.3 g/dL Hematocrit 41.0 % Mean Corpuscular Volume 91.1 fL Mean Corpuscular Hemoglobin 27.3 pg Mean Corpuscular Hemoglobin Concent 30.0 g/dl Platelet Count 209 K/uL Mean Platelet Volume 10.6 fL Neutrophils (%) (Auto) 54.0 % Lymphocytes (%) (Auto) 28.4 % Monocytes (%) (Auto) 10.1 % Eosinophils (%) (Auto) 6.2 % Basophils (%) (Auto) 0.8 % Neutrophils # (Auto) 3.48 K/uL Lymphocytes # (Auto) 1.83 K/uL Monocytes # (Auto) 0.65 K/uL Eosinophils # (Auto) 0.40 K/uL Basophils # (Auto) 0.05 K/uL RDW Standard Deviation 52.3 fL RDW Coefficient of Variation 15.7 % Immature Granulocyte % (Auto) 0.5 % Immature Granulocyte # (Auto) 0.03 K/uL Prothrombin Time 11.9 SECONDS Prothromb Time International Ratio 1.1 Sodium Level 143 mmol/L Potassium Level 3.6 mmol/L Chloride Level 106 mmol/L Carbon Dioxide Level 30 mmol/L Anion Gap 7.0 mmol/L Blood Urea Nitrogen 5 mg/dl Creatinine 0.81 mg/dl Est Creatinine Clear Calc Drug Dose 193.5 ml/min Estimated GFR () 123.5 Estimated GFR (Non- 106.6 BUN/Creatinine Ratio 6.2 Random Glucose 89 mg/dl Calcium Level 7.8 mg/dl Phosphorus Level 3.0 mg/dl Magnesium Level 2.4 mg/dl Total Bilirubin 0.5 mg/dl Direct Bilirubin 0.2 mg/dl Aspartate Amino Transf (AST/SGOT) 10 U/L Alanine Aminotransferase (ALT/SGPT) 12 U/L Alkaline Phosphatase 56 U/L Total Protein 6.6 gm/dl Albumin 2.2 gm/dl Bedside Glucose 98 mg/dl 111 mg/dl Assessment and Plan 46 M with a h/o DMII, obesity, HTN, depression, here with sepsis and acute hypoxemic and hypercarbic respiratory failure requiring mechanical ventilation, with diffuse Staphylococcal folliculitis rash and diabetic leg infection. Sepsis/diabetic leg infection,Diffuse rash- Staph folliculitis with MSSA and Coag neg Staph growing on wound cxs. BCxs remain no growth so far. Sepsis resolved -was on vancomycin IV, Zosyn IV and Levaquin IV, acyclovir in case of disseminated Varicella--> Varicella titers negative--> can stop acyclovir but will d/w ID in the morning -ID following and narrowed abx down to Ancef Flu neg, Lyme neg -f/u pending blood cultures-NGTD -appreciate ID consult f/u serologies as available-only left pending are Hantavirus and HIV -no need for SERGEY at this point given less likely to have SBE given negative BCxs Acute hypoxemic and hypercarbic respiratory failure requiring mechanical ventilation secondary to sepsis and morbid obesity/hypoventilation, suspected pulmonary infiltrates bilat but CTA chest showed no infiltrates. Extubated after 2 days, much improved. History of smoking and recently quit. No weaned off O2 all together Sputum cx growing normal jessica -CTA Chest no PNA or infiltrate, no PE -continue tele for today and likely transition to Med/Surg tomorrow -d/c Madonna in AM -continue scheduled nebs -encouraged weight loss aggressively after full recovery from illness-can discuss with PCP Hypertension--hold HCTZ, giving daily IV furosemide and restarted po metoprolol -add back losartan tomorrow AM -continue IV lasix daily for net negative fluid balance Depression, ANxiety-- most meds held initially while intubated -restarted buspirone, Celexa, gabapentin, Abilify -receiving ativan tid IV but now switch to home dose of xanax 2mg tid po -f/u Psychiatry routinely as outpt DMII: HgbA1C 6.2% here, not on any meds at home -accuchecks q6h add SSI or insulin gtt if glucose elevated GERD-- PPI po Morbid obesity--suspect element of obesity hypoventilation syndrome,consider outpt sleep study -aggressive weight loss program as above Proph-Lovenox, PPI Dispo-FC, to Med/Surg tomorrow and then home in 1-2 days on po abx
[2016-07-27] MEDS: ALPRAZOLAM 0.5 MG TAB PO SCH (21:40)
[2016-07-27] MEDS: ARIPIprazole TAB 5 MG TAB PO SCH (21:42)
[2016-07-28] VITALS (10 sets, daily range): BP systolic 126–161; BP diastolic 85–102; PULSE 65–124; TEMP 36.3–37.1; O2SAT 90–96
[2016-07-28] MEDS: ALBUTEROL 0.083% NEBU SOLN 3 ML VIAL INH SCH ×4 (01:53→19:35)
[2016-07-28] MEDS: ACYCLOVIR SOD INJ 800 MG in DEXTROSE 5% 250ML 250 ML IV SCH ×2 (02:24→09:36)
[2016-07-28] MEDS: CEFAZOLIN SOD 2000 MG in DEXTROSE 5% 50ML IV SCH ×2 (05:54→12:56)
[2016-07-28 07:14] LABS: BASO % 0.8 %; BASO ABS # 0.06 K/uL (0-0.2); COMPLETE YES; EOS % 4.6 %; HEMATOCRIT 42.6 % (42-52); IG% 0.7 %; LYMPH % 22.6 %; LYMPH ABS # 1.71 K/uL (1.2-3.4); MEAN CELL VOLUME 90.1 fL (80-100); MEAN CORPUSCULAR HEMOGLOBIN 28.5 pg (25-34); MEAN CORPUSCULAR HGB CONC 31.7 g/dl (32-36); MEAN PLATELET VOLUME 10.2 fL (7.4-10.4); MONO % 8.3 %; PLATELET COUNT 233 K/uL (130-400); RED BLOOD COUNT 4.73 M/uL (4.7-6.1); WHITE BLOOD COUNT 7.55 K/uL (4.8-10.8)
[2016-07-28 07:38] LABS: BUN/CREATININE RATIO 7.5 (10-20); CALCIUM 8.6 mg/dl (8.5-10.1); CREATININE 0.91 mg/dl (0.60-1.40); MAGNESIUM 2.2 mg/dl (1.8-2.4); POTASSIUM 3.4 mmol/L (3.5-5.1)
[2016-07-28] MEDS ORDERED: POTASSIUM CHLORIDE 20 MEQ TABCR PO STA (07:41)
[2016-07-28] MEDS: FUROSEMIDE INJ 20 MG in SYRINGE 0 ML IV SCH (08:06)
[2016-07-28] MEDS: GABAPENTIN 600 MG TAB PO SCH ×4 (08:07→20:36)
[2016-07-28] MEDS: LOSARTAN POTASSIUM 50 MG TAB PO SCH (08:07)
[2016-07-28] MEDS: CITALOPRAM 40 MG TAB PO SCH (08:07)
[2016-07-28] MEDS: METOPROLOL TARTRATE 100 MG TAB PO SCH ×2 (08:07→20:35)
[2016-07-28] MEDS: PANTOprazole SOD 40 MG TAB PO SCH (08:08)
[2016-07-28] MEDS: BusPIRone 15 MG TAB PO SCH ×2 (08:08→20:35)
[2016-07-28] MEDS: CHLORHEXIDINE GLUCONATE 0.12% 15 ML UDP MT SCH ×3 (08:08→20:34)
[2016-07-28] MEDS: ALPRAZOLAM 0.5 MG TAB PO SCH ×3 (08:14→20:36)
[2016-07-28] MEDS: ENOXAPARIN 40 MG/0.4 ML SYR SQ SCH ×2 (12:56→22:32)
--- NOTE | 2016-07-28 14:10 | Progress Note ---
Subjective Date of Service: Jul 28, 2016. Subjective Pt evaluation today including: conversation w/ patient, physical exam, chart review, lab review pt seen in follow up, transferred from ICU. doing much better today. spoke with nursing, pt is ambulating in hallway, on RA, denies sob/cp, cough. rash almost gone. tolerating abx. blood cultures negative. wound culture with MSSA. narrowed to ancef. remain on IV acyclovir. no fever overnight, wbc nml. HCV ab negative, lyme neg, HIV pending. VZV negative. Pt states he does not recall having chicken pox as a child. All remaining ros reviewed and are negative. Problem List Medical Problems: (1) Cellulitis Status: Acute (2) Sepsis Status: Acute Objective Vital Signs Date Time Temp Pulse Resp B/P (MAP) Pulse Ox O2 Delivery O2 Flow Rate FiO2 07/28/16 12:00 Room Air 07/28/16 11:52 36.9 124 22 126/87 (100) 96 07/28/16 08:20 36.9 85 20 140/85 (103) 96 07/28/16 08:00 Room Air 07/28/16 07:12 77 16 95 Room Air 07/28/16 04:00 Room Air 07/28/16 03:57 36.4 65 20 144/88 (106) 93 Room Air 07/28/16 01:53 74 16 95 Room Air 07/27/16 23:59 Room Air 07/27/16 23:53 37.1 71 20 149/96 (113) 94 Room Air 07/27/16 20:00 Room Air 07/27/16 19:08 76 16 92 Room Air 07/27/16 18:53 37.4 79 20 147/93 (111) 90 Nasal Cannula 07/27/16 16:00 Room Air 07/27/16 15:24 37.0 72 22 155/94 (114) 93 Room Air 07/27/16 15:00 74 16 97 Nasal Cannula 2.0 07/27/16 14:43 93 Physical Exam General Appearance: WD/WN, no apparent distress Eyes: normal inspection, EOMI Neck: supple Respiratory/Chest: lungs clear, normal breath sounds, no respiratory distress Cardiovascular: regular rate, rhythm, no edema Abdomen: non tender, soft Extremities: non-tender, normal inspection, no pedal edema Neurologic/Psychiatric: no motor/sensory deficits, oriented x 3 Skin: normal color, + rash Comments: b/l le erythema has completely resolved, no warmth, no tenderness. b/l le/ue rash almost completely resolved. no crusting lesions, no vesicular lesion. mild erythematous patches remain, no drainage, no weeping. diffuse erythema of left elbow resolved. Laboratory Results Item Value Date Time Gram Stain - Final Complete 07/24/16 06 Drainage-Deep Leg Lower Left Gram Stain - Final Complete 07/24/16 06 Drainage-Deep Elbow Blood Culture - Preliminary Resulted 07/24/16 0400 Blood NO GROWTH TO DATE. Blood Culture - Preliminary Resulted 07/24/16 0335 Blood NO GROWTH TO DATE. Last 24 Hours Test 07/27/16 16:22 07/27/16 19:55 07/28/16 06:29 07/28/16 06:50 Bedside Glucose 98 mg/dl 111 mg/dl 100 mg/dl White Blood Count 7.55 K/uL Red Blood Count 4.73 M/uL Hemoglobin 13.5 g/dL Hematocrit 42.6 % Mean Corpuscular Volume 90.1 fL Mean Corpuscular Hemoglobin 28.5 pg Mean Corpuscular Hemoglobin Concent 31.7 g/dl Platelet Count 233 K/uL Mean Platelet Volume 10.2 fL Neutrophils (%) (Auto) 63.0 % Lymphocytes (%) (Auto) 22.6 % Monocytes (%) (Auto) 8.3 % Eosinophils (%) (Auto) 4.6 % Basophils (%) (Auto) 0.8 % Neutrophils # (Auto) 4.75 K/uL Lymphocytes # (Auto) 1.71 K/uL Monocytes # (Auto) 0.63 K/uL Eosinophils # (Auto) 0.35 K/uL Basophils # (Auto) 0.06 K/uL RDW Standard Deviation 50.0 fL RDW Coefficient of Variation 15.4 % Immature Granulocyte % (Auto) 0.7 % Immature Granulocyte # (Auto) 0.05 K/uL Sodium Level 141 mmol/L Potassium Level 3.4 mmol/L Chloride Level 103 mmol/L Carbon Dioxide Level 31 mmol/L Anion Gap 7.0 mmol/L Blood Urea Nitrogen 7 mg/dl Creatinine 0.91 mg/dl Est Creatinine Clear Calc Drug Dose 172.4 ml/min Estimated GFR () 116.7 Estimated GFR (Non- 100.7 BUN/Creatinine Ratio 7.5 Random Glucose 99 mg/dl Calcium Level 8.6 mg/dl Magnesium Level 2.2 mg/dl Test 07/28/16 11:32 Bedside Glucose 127 mg/dl Assessment and Plan (1) Sepsis Assessment & Plan: resolved. much improved. will change to po abx. will need 14 days total, day #5. will continue with antivrial treatment as well. will convert to valtrex for remainder, will need 7 days total, day #5. His rash to not appear to be typical presentation for varicella, no vesicles noted,no itching reported but he has had significant improvement in appearance on antivirals and initial ab negative for VZV. will need repeat ab testing in 4- 6 to assess for conversion. In any event, will complete course of treatment. (2) Cellulitis (3) Varicella Assessment & Plan: ? if initial cxr findings due to primary varicella pna. sputum negative, will treat as such. complete course of antiviral with po valtrex. much improved, now on RA.
[2016-07-28] MEDS: CEPHALEXIN MONOHYDRATE 500 MG CAP PO SCH ×2 (15:23→20:35)
--- NOTE | 2016-07-28 18:06 | Hospitalist Progress Note ---
Hospitalist Progress Note Date of Service Jul 28, 2016. Subjective Pt evaluation today including: conversation w/ patient Pt feeling much improved, no SOB, is OOB and ambulating, PT recommending return to home. Brandon removed and he has not voided yet. No previous h/o urinary retention Constitutional: No fever Respiratory: No shortness of breath Cardiovascular: No chest pain All Other Systems: Reviewed and Negative Objective Vital Signs Date Time Temp Pulse Resp B/P (MAP) Pulse Ox O2 Delivery O2 Flow Rate FiO2 07/28/16 16:00 92 Room Air 07/28/16 15:47 37.1 80 18 155/92 (113) 92 Room Air 07/28/16 14:14 77 16 95 Room Air 07/28/16 12:00 Room Air 07/28/16 11:52 36.9 124 22 126/87 (100) 96 07/28/16 08:20 36.9 85 20 140/85 (103) 96 07/28/16 08:00 Room Air 07/28/16 07:12 77 16 95 Room Air 07/28/16 04:00 Room Air 07/28/16 03:57 36.4 65 20 144/88 (106) 93 Room Air 07/28/16 01:53 74 16 95 Room Air 07/27/16 23:59 Room Air 07/27/16 23:53 37.1 71 20 149/96 (113) 94 Room Air 07/27/16 20:00 Room Air 07/27/16 19:08 76 16 92 Room Air 07/27/16 18:53 37.4 79 20 147/93 (111) 90 Nasal Cannula Physical Exam General Appearance: WD/WN, no apparent distress, + obese Eyes: normal inspection, sclerae normal ENT: hearing grossly normal Neck: trachea midline Respiratory/Chest: lungs clear, normal breath sounds, no respiratory distress, no accessory muscle use Cardiovascular: regular rate, rhythm, no murmur Abdomen: normal bowel sounds, non tender, soft (and morbidly obese) Extremities: + swelling Neurologic/Psychiatric: alert, normal mood/affect Skin: + rash (much improved diffuse maculopapular rash with crusted papules now almost resolved, left forearm with pinkish region with central crusting about 5 cm in diameter much imrpoved, legs with purplish disoloration of chronic venous stasis but erythema all resolved) Laboratory Results Last 24 Hours Test 07/27/16 19:55 07/28/16 06:29 07/28/16 06:50 07/28/16 11:32 Bedside Glucose 111 mg/dl 100 mg/dl 127 mg/dl White Blood Count 7.55 K/uL Red Blood Count 4.73 M/uL Hemoglobin 13.5 g/dL Hematocrit 42.6 % Mean Corpuscular Volume 90.1 fL Mean Corpuscular Hemoglobin 28.5 pg Mean Corpuscular Hemoglobin Concent 31.7 g/dl Platelet Count 233 K/uL Mean Platelet Volume 10.2 fL Neutrophils (%) (Auto) 63.0 % Lymphocytes (%) (Auto) 22.6 % Monocytes (%) (Auto) 8.3 % Eosinophils (%) (Auto) 4.6 % Basophils (%) (Auto) 0.8 % Neutrophils # (Auto) 4.75 K/uL Lymphocytes # (Auto) 1.71 K/uL Monocytes # (Auto) 0.63 K/uL Eosinophils # (Auto) 0.35 K/uL Basophils # (Auto) 0.06 K/uL RDW Standard Deviation 50.0 fL RDW Coefficient of Variation 15.4 % Immature Granulocyte % (Auto) 0.7 % Immature Granulocyte # (Auto) 0.05 K/uL Sodium Level 141 mmol/L Potassium Level 3.4 mmol/L Chloride Level 103 mmol/L Carbon Dioxide Level 31 mmol/L Anion Gap 7.0 mmol/L Blood Urea Nitrogen 7 mg/dl Creatinine 0.91 mg/dl Est Creatinine Clear Calc Drug Dose 172.4 ml/min Estimated GFR () 116.7 Estimated GFR (Non- 100.7 BUN/Creatinine Ratio 7.5 Random Glucose 99 mg/dl Calcium Level 8.6 mg/dl Magnesium Level 2.2 mg/dl Test 07/28/16 16:05 Bedside Glucose 113 mg/dl Assessment and Plan 46 M with a h/o DMII, obesity, HTN, depression, here with sepsis and acute hypoxemic and hypercarbic respiratory failure requiring mechanical ventilation, with diffuse Staphylococcal folliculitis rash and diabetic leg infection. Sepsis/diabetic leg infection,Diffuse rash- Staph folliculitis with MSSA and Coag neg Staph growing on wound cxs. Question of disseminated Varicella remains but is unlikely as rash not consistent with Varicella. BCxs remain no growth so far. Sepsis resolved -was on vancomycin IV, Zosyn IV and Levaquin IV, acyclovir in case of disseminated Varicella--> Varicella titers negative both IgM and IgG, no previous h/o Chicken pox in childhood--> ID recommends finishing out course of Valtrex po (day #5/7) and repeat Varicella titers IgM and IgG in 4-6 weeks to see if convert to seropositive -ID following and narrowed abx down to Ancef--> today convert to keflex po 500mg tid (day #5) Flu neg, Lyme neg -f/u pending blood cultures-NGTD -appreciate ID consult f/u serologies as available-only left pending are Hantavirus and HIV -no need for SERGEY given negative BCxs Acute hypoxemic and hypercarbic respiratory failure requiring mechanical ventilation secondary to sepsis and morbid obesity/hypoventilation, suspected pulmonary infiltrates bilat but CTA chest showed no infiltrates. Extubated after 2 days, much improved. History of smoking and recently quit. Now weaned off O2 all together Sputum cx growing normal jessica -CTA Chest no PNA or infiltrate, no PE -ok to transfer to Med/Surg-no events on tele -ongoing voiding trial after removal of Brandon today--> straight cath prn -continue scheduled nebs -encouraged weight loss aggressively after full recovery from illness-can discuss with PCP Hypertension--hold HCTZ, giving daily IV furosemide and restarted po metoprolol. BPs mildly elevated -continue losartan -continue IV lasix daily for net negative fluid balance, transition to HCTZ on discharge Depression, Anxiety-- most meds held initially while intubated -restarted buspirone, Celexa, gabapentin, Abilify -continue home dose of xanax 2mg tid po -f/u Psychiatry routinely as outpt DMII: HgbA1C 6.2% here, not on any meds at home -accuchecks q6h add SSI or insulin gtt if glucose elevated GERD-- PPI po Morbid obesity--suspect element of obesity hypoventilation syndrome,consider outpt sleep study -aggressive weight loss program as above Proph-Lovenox, PPI Dispo-FC, to Med/Surg today and likely to home tomorrow
[2016-07-28] MEDS: ARIPIprazole TAB 5 MG TAB PO SCH (21:42)
[2016-07-29 00:05] VITALS: BP 148/95; PULSE 72; TEMP 36.6; O2SAT 96
[2016-07-29 01:34] VITALS: PULSE 66; O2SAT 90
[2016-07-29] MEDS: ALBUTEROL 0.083% NEBU SOLN 3 ML VIAL INH SCH (01:34)
[2016-07-29 04:00] VITALS: BP 153/81; PULSE 68; TEMP 36.9; O2SAT 92
[2016-07-29 05:48] LABS: BASO % 0.5 %; BASO ABS # 0.04 K/uL (0-0.2); COMPLETE YES; EOS % 3.1 %; HEMATOCRIT 43.9 % (42-52); IG% 0.7 %; LYMPH % 20.4 %; LYMPH ABS # 1.64 K/uL (1.2-3.4); MEAN CELL VOLUME 89.4 fL (80-100); MEAN CORPUSCULAR HEMOGLOBIN 27.9 pg (25-34); MEAN CORPUSCULAR HGB CONC 31.2 g/dl (32-36); MEAN PLATELET VOLUME 10.5 fL (7.4-10.4); MONO % 10.7 %; NEUT % 64.6 %; PLATELET COUNT 250 K/uL (130-400); RED BLOOD COUNT 4.91 M/uL (4.7-6.1); WHITE BLOOD COUNT 8.02 K/uL (4.8-10.8)
[2016-07-29 06:14] LABS: BUN/CREATININE RATIO 8.6 (10-20); CALCIUM 9.1 mg/dl (8.5-10.1); CREATININE 0.87 mg/dl (0.60-1.40); MAGNESIUM 2.3 mg/dl (1.8-2.4); POTASSIUM 3.4 mmol/L (3.5-5.1)
[2016-07-29 07:25] VITALS: PULSE 88; O2SAT 94
[2016-07-29 07:43] VITALS: BP 158/96; PULSE 79; TEMP 36.6; O2SAT 92
[2016-07-29] MEDS ORDERED: POTASSIUM CHLORIDE 10 MEQ TABCR PO ONE (07:45)
[2016-07-29] MEDS: CHLORHEXIDINE GLUCONATE 0.12% 15 ML UDP MT SCH ×2 (07:54→08:00)
[2016-07-29] MEDS: ALPRAZOLAM 0.5 MG TAB PO SCH (07:54)
[2016-07-29] MEDS: PANTOprazole SOD 40 MG TAB PO SCH (07:55)
[2016-07-29] MEDS: GABAPENTIN 600 MG TAB PO SCH ×2 (07:55→11:40)
[2016-07-29] MEDS: CEPHALEXIN MONOHYDRATE 500 MG CAP PO SCH ×2 (07:55→11:40)
[2016-07-29] MEDS: METOPROLOL TARTRATE 100 MG TAB PO SCH (07:55)
[2016-07-29] MEDS: LOSARTAN POTASSIUM 50 MG TAB PO SCH (07:56)
[2016-07-29] MEDS: CITALOPRAM 40 MG TAB PO SCH (07:56)
[2016-07-29] MEDS: BusPIRone 15 MG TAB PO SCH (07:56)
[2016-07-29] MEDS: FUROSEMIDE INJ 20 MG in SYRINGE 0 ML IV SCH (08:14)
[2016-07-29] MEDS ORDERED: KFL500 PO (10:13)
[2016-07-29] MEDS ORDERED: BUSP30TA2 PO (10:13)
[2016-07-29] MEDS ORDERED: VLT500 PO (10:13)
[2016-07-29] MEDS ORDERED: PRVHFAIN INH (10:13)
--- NOTE | 2016-07-29 10:22 | Discharge Instructions ---
Discharge Instructions Date of Service Jul 29, 2016. Admission Reason for Admission: Cellulitis, Sepsis Discharge Discharge Diagnosis / Problem: Staphylococcal folliculitis,Sepsis, Respiratory failure Discharge Goals Goal(s): Improve disease control, Diagnostic testing, Therapeutic intervention Activity Recommendations Activity Limitations: resume your previous activity Exercise/Sports Limitations: gradually increase as tolerated Shower/Bathe: no limitations . Instructions / Follow-Up Instructions / Follow-Up You were admitted with sepsis, cellulitis and a skin infection caused by Staph bacteria. You had respiratory failure and were placed on a ventilator in the ICU. You improved after being treated with antibiotics. There was suspicion that your rash could have been from Chicken Pox but it is less likely. Your initial testing for Chicken Pox was negative, but this should be repeated in 4- 6 weeks by your family doctor to see if it turns positive. Please finish out the courses of antibiotics given to you. Please follow up with your PCP within 1 week as scheduled for you. Current Hospital Diet Patient's current hospital diet: AHA Diet (Heart Healthy), Low Sodium Diet (2gm Na) Discharge Diet Recommended Diet: AHA Diet (Heart Healthy), Low Sodium Diet (2gm Na) Procedures Procedures Performed: PICC line placement Head CT Venous Doppler lower extremities Chest CT angiogram Chest xrays Pending Studies Studies pending at discharge: yes List of pending studies: Hantavirus serology HIV test Laboratory Results Last 24 Hours Test 07/28/16 11:32 07/28/16 16:05 07/28/16 20:37 07/29/16 05:15 Bedside Glucose 127 mg/dl 113 mg/dl 96 mg/dl White Blood Count 8.02 K/uL Red Blood Count 4.91 M/uL Hemoglobin 13.7 g/dL Hematocrit 43.9 % Mean Corpuscular Volume 89.4 fL Mean Corpuscular Hemoglobin 27.9 pg Mean Corpuscular Hemoglobin Concent 31.2 g/dl Platelet Count 250 K/uL Mean Platelet Volume 10.5 fL Neutrophils (%) (Auto) 64.6 % Lymphocytes (%) (Auto) 20.4 % Monocytes (%) (Auto) 10.7 % Eosinophils (%) (Auto) 3.1 % Basophils (%) (Auto) 0.5 % Neutrophils # (Auto) 5.17 K/uL Lymphocytes # (Auto) 1.64 K/uL Monocytes # (Auto) 0.86 K/uL Eosinophils # (Auto) 0.25 K/uL Basophils # (Auto) 0.04 K/uL RDW Standard Deviation 49.4 fL RDW Coefficient of Variation 15.3 % Immature Granulocyte % (Auto) 0.7 % Immature Granulocyte # (Auto) 0.06 K/uL Erythrocyte Sedimentation Rate 62 mm/hr Sodium Level 142 mmol/L Potassium Level 3.4 mmol/L Chloride Level 102 mmol/L Carbon Dioxide Level 31 mmol/L Anion Gap 9.0 mmol/L Blood Urea Nitrogen 8 mg/dl Creatinine 0.87 mg/dl Est Creatinine Clear Calc Drug Dose 180.3 ml/min Estimated GFR () 120.0 Estimated GFR (Non- 103.5 BUN/Creatinine Ratio 8.6 Random Glucose 88 mg/dl Calcium Level 9.1 mg/dl Magnesium Level 2.3 mg/dl Hemoglobin A1c Test 07/24/16 03:35 Range/Units Estimated Average Glucose 131 mg/dl Hemoglobin A1c 6.2 H 4.5-5.6 % Medical Emergencies . Who to Call and When: Medical Emergencies: If at any time you feel your situation is an emergency, please call 911 immediately. . Non-Emergent Contact Non-Emergency issues call your: Primary Care Provider Call Non-Emergent contact if: you have a fever, wound has increased drainage, wound has increased redness, wound has increased pain, you have any medication questions you have worsening shortness of breath, return of your rash, or for any other concerns . . "Provider Documentation" section prepared by Ghislaine Mojica. . VTE Core Measure Inpt VTE Proph given/why not?: Unfractionated heparin SQ
[2016-07-29 10:40] VITALS: BP 158/96; PULSE 79; TEMP 36.6; O2SAT 92
[2016-07-29] MEDS: ENOXAPARIN 40 MG/0.4 ML SYR SQ SCH (11:00)
[2016-07-29] MEDS ORDERED: ALBUTEROL HFA 8 GM INHALER INH SCH (12:00)
--- NOTE | 2016-07-30 00:23 | Discharge Summary ---
Discharge Summary Date of Service Jul 29, 2016. Discharge Summary Admission Date: Jul 24, 2016 at 04:49 Discharge Date: Jul 29, 2016 Discharge Disposition: Home Principal Diagnosis: Sepsis, Staphy folliculitis,Acute hypoxemic/hypercarbic respiratory failure Problems/Secondary Diagnoses: DMII Morbid obesity HTN Anxiety and depression GERD Immunizations: Have You Had Influenza Vaccine: No History of Tetanus Vaccine?: Unknown History of Pneumococcal: No History of Hepatitis B Vaccine: Unknown Procedures: PICC line placement Head CT Venous Doppler lower extremities Chest CT angiogram Chest xrays Consultations: Critical Care Infectious Disease Medication Reconciliation New Medications: Albuterol (Ventolin Hfa) 60 Puffs/5400 Mcg Aers 2 PUFFS INH Q6 for 30 Days, #1 INHALER Cephalexin Monohydrate (Cephalexin) 500 Mg Cap 500 MG PO TID for 8 Days, #24 CAP Valacyclovir HCl (Valacyclovir HCl) 500 Mg Tab 1000 MG PO TID for 2 Days, #6 TAB Changed Medications: Buspirone Hcl (Buspirone Hcl) 30 Mg Tab 30 MG PO BID for 30 Days, 2 Refills (Changed from: TID) Continued Medications: Alprazolam (Alprazolam) 2 Mg Tab 2 MG PO TID Aripiprazole (Abilify) 5 Mg Tab 5 MG PO HS, TAB Citalopram Hydrobromide (Celexa) 40 Mg Tab 40 MG PO QAM, TAB Furosemide (Furosemide) 20 Mg Tab 20 MG PO DAILY, #30 Gabapentin (Neurontin) 600 Mg Tab 600 MG PO QID, TAB Hydrochlorothiazide (Hctz) 25 Mg Tab 25 MG PO DAILY, TAB Losartan Potassium (Cozaar) 100 Mg Tab 100 MG PO DAILY, #30 Metoprolol Tartrate (Metoprolol Tartrate) 100 Mg Tab 100 MG PO BID Nortriptyline HCl (Nortriptyline HCl) 75 Mg Cap 75 MG PO HS, #30 Omeprazole (Prilosec) 20 Mg Capcr 20 MG PO DAILY, 0 Refills Potassium Chloride (Potassium Chloride Er) 10 Meq Cap 10 MEQ PO DAILY Discharge Exam Feeling very well, no SOB, no CP, making urine Physical Exam General Appearance: WD/WN, no apparent distress, + obese Eyes: normal inspection, sclerae normal ENT: hearing grossly normal Neck: trachea midline Respiratory/Chest: lungs clear, normal breath sounds, no respiratory distress, no accessory muscle use Cardiovascular: regular rate, rhythm, no murmur Abdomen: normal bowel sounds, non tender, soft (and morbidly obese) Extremities: + swelling Neurologic/Psychiatric: alert, normal mood/affect Skin: + rash (much improved diffuse maculopapular rash with crusted papules now almost resolved, left forearm with pinkish region with central crusting about 5 cm in diameter much imrpoved, legs with purplish disoloration of chronic venous stasis but erythema all resolved) Review of Systems: Constitutional: No fever Eyes: No problem reported ENT: No problem reported Respiratory: No problem reported Cardiovascular: No problem reported Abdomen: No problem reported Musculoskeletal: No problem reported Genitourinary - Male: No problem reported Neurologic: No problem reported Psychiatric: No problem reported Endocrine: No problem reported Hematologic / Lymphatic: No problem reported Integumentary: No problem reported Hospital Course 46 M with a h/o DMII, obesity, HTN, depression, here with sepsis and acute hypoxemic and hypercarbic respiratory failure requiring mechanical ventilation, with diffuse Staphylococcal folliculitis rash and diabetic leg infection. Sepsis/diabetic leg infection,Diffuse rash- Staph folliculitis with MSSA and Coag neg Staph growing on wound cxs. Question of disseminated Varicella remains but is unlikely as rash not consistent with Varicella. BCxs remain no growth so far. Sepsis resolved -was on vancomycin IV, Zosyn IV and Levaquin IV, acyclovir in case of disseminated Varicella--> Varicella titers negative both IgM and IgG, no previous h/o Chicken pox in childhood--> ID recommends finishing out course of Valtrex po (day #67) and repeat Varicella titers IgM and IgG in 4-6 weeks to see if convert to seropositive -ID following and narrowed abx down to Ancef--> today convert to keflex po 500mg tid (day #07/20) Flu neg, Lyme neg -f/u pending blood cultures-NGTD -appreciate ID consult f/u serologies as available-only left pending are Hantavirus and HIV -no need for SERGEY given negative BCxs Acute hypoxemic and hypercarbic respiratory failure requiring mechanical ventilation secondary to sepsis and morbid obesity/hypoventilation, suspected pulmonary infiltrates bilat but CTA chest showed no infiltrates. Extubated after 2 days, much improved. History of smoking and recently quit. Now weaned off O2 all together Sputum cx growing normal jessica -CTA Chest no PNA or infiltrate, no PE -continue albuterol HFA prn at home -encouraged weight loss aggressively after full recovery from illness-can discuss with PCP Hypertension--gave daily IV furosemide to diureses after aggressive fluid resuscitation on admission -continue metoprolol -restart HCTZ on discharge -continue losartan Depression, Anxiety-- most meds held initially while intubated -restarted buspirone, Celexa, gabapentin, Abilify -continue home dose of xanax 2mg tid po -f/u Psychiatry routinely as outpt DMII: HgbA1C 6.2% here, not on any meds at home -received SSI hre but not needed upon discharge GERD-- PPI po Morbid obesity--suspect element of obesity hypoventilation syndrome,consider outpt sleep study -aggressive weight loss program as above Total Time Spent: Greater than 30 minutes This includes examination of the patient, discharge planning, medication reconciliation, and communication with other providers. Discharge Instructions Please refer to the electronic Patient Visit Report (Discharge Instructions) for additional information. Follow-Up PCP within 1 week Needs repeat Varicella titers in 4-6 weeks Additional Copies To Dima Salter M.D.
== END 2016-07-29 14:01 | disposition home or self-care (01) | DRG 871 ==
LOC: C.EDB 03:13 → C.MSICU 04:49 → ENRESERV 05:00 → C.2E 07-27 14:31 → ENRESERV 07-28 18:16 → C.MS4W 07-28 19:11
PROVIDERS: ADMIT Hospitalist; ATTEND Family Medicine
PROC: 02HV33Z Insertion of Infusion Device into Superior Vena Cava, Percutaneous Approach (ICD-10-PCS; principal; 2016-07-24)
PROC: 5A1945Z Respiratory Ventilation, 24-96 Consecutive Hours (ICD-10-PCS; 2016-07-24)
PROC: 0BH17EZ Insertion of Endotracheal Airway into Trachea, Via Natural or Artificial Opening (ICD-10-PCS; 2016-07-24)
DX: A41.9 Sepsis, unspecified organism (principal); J18.9 Pneumonia, unspecified organism; G93.41 Metabolic encephalopathy; J96.01 Acute respiratory failure with hypoxia; J96.02 Acute respiratory failure with hypercapnia; N17.9 Acute kidney failure, unspecified; L03.116 Cellulitis of left lower limb; L03.115 Cellulitis of right lower limb; E66.2 Morbid (severe) obesity with alveolar hypoventilation; K21.9 Gastro-esophageal reflux disease without esophagitis; I10 Essential (primary) hypertension; F41.9 Anxiety disorder, unspecified; L73.9 Follicular disorder, unspecified; F32.9 Major depressive disorder, single episode, unspecified; R07.9 Chest pain, unspecified; E11.69 Type 2 diabetes mellitus with other specified complication; B95.61 Methicillin susceptible Staphylococcus aureus infection as the cause of diseases classified elsewhere; E83.39 Other disorders of phosphorus metabolism; Z87.891 Personal history of nicotine dependence; Z79.899 Other long term (current) drug therapy

== ENCOUNTER → 2016-08-29 | Outpatient (CLI) | payer OTHER ==
[~2016-08-29] MED LIST changes: +ABL/5 PO; -ALPR1TAB3 PO; +ALPR2TAB6 PO; -BSP15 PO; +BUSP30TA2 PO; -CHOL100010 PO; +CITA40TA12 PO; -CLX20 PO; -GABA800T PO; -HYDR-5688 PO; +HYDR25TA4 PO; -IBUP600T44 PO; +KFL500 PO; +NRN/600 PO; -NRN800 PO; +POTA1CAP2 PO; +PRVHFAIN INH; -SUCCINYLCHOLINE CHLORIDE 20 MG/ML 10 ML VIAL IV ONE; +VLT500 PO
[2016-08-31 16:35] LABS: VARICELLA ZOS VIR IGG <135.00 Index (>=165.00); VARICELLA ZOS VIR IGM AB <=0.90 (<=0.90)
== END ==
LOC: C.LABPVFM 09:38
PROVIDERS: ATTEND Family Medicine
DX: L08.9 Local infection of the skin and subcutaneous tissue, unspecified (principal)

== ENCOUNTER → 2017-04-10 | Outpatient (CLI) | payer OTHER ==
[2017-04-10 18:03] LABS: ALBUMIN 3.1 gm/dl (3.4-5.0); ALKALINE PHOSPHATASE 69 U/L (45-117); ALT/SGPT 26 U/L (12-78); AST/SGOT 18 U/L (15-37); BLOOD UREA NITROGEN 10 mg/dl (7-18); CALCIUM 8.8 mg/dl (8.5-10.1); CARBON DIOXIDE 35 mmol/L (21-32); CREATININE 0.94 mg/dl (0.60-1.40); GLUCOSE 107 mg/dl (70-99); POTASSIUM 4.1 mmol/L (3.5-5.1); SODIUM 139 mmol/L (136-145); TOTAL PROTEIN 7.3 gm/dl (6.4-8.2)
== END | disposition home or self-care (01) ==
LOC: C.LABPVFM 13:28
PROVIDERS: ATTEND Nurse Practitioner
DX: I10 Essential (primary) hypertension (principal); Z13.220 Encounter for screening for lipoid disorders; R73.01 Impaired fasting glucose